=== PATIENT | male | born 1945 | race Caucasian/White ===

== ENCOUNTER 2017-08-18 12:35 | Emergency (ER) | payer MEDICARE, MEDICAID ==
[~2017-08-18] VITALS: Ht 175.3 cm; Wt 127.0 kg
[2017-08-18 12:44] VITALS: BP 131/50
[2017-08-18 13:49] LABS: Eosinophils # (auto) 0.3 uL; Monocytes # (auto) 0.6 uL
[2017-08-18 13:51] LABS: Basophils # (auto) 0.1 uL; Basophils % (auto) 0.7 % (0.0-2.0); Eosinophils % (auto) 4.1 % (0.0-7.0); Hematocrit 38.4 % (41.0-53.0); Hemoglobin 12.5 g/dL (13.5-17.5); Lymphocytes % (auto) 25.3 % (10.0-50.0); Mean Corpuscular Hemoglobin 26.7 pg (28.0-32.0); Mean Corpuscular Hgb Conc. 32.6 g/dL (32.0-36.0); Mean Corpuscular Volume 81.9 fL (80.0-100.0); Monocytes % (auto) 7.3 % (0.0-12.0); Neutrophils # (auto) 4.8 uL; Neutrophils % (auto) 62.6 % (37.0-80.0); Platelet Count (auto) 304 10^3/uL (140-450); Red Blood Cells 4.69 10^6/uL (4.5-5.90); Red Cell Distribution Width 14.2 % (11.8-14.3); White Blood Cell 7.7 10^3/uL (4.4-10.8)
[2017-08-18 14:02] LABS: Alanine Aminotransferase 18 U/L (16-61); Alkaline Phosphatase 104 U/L (45-117); Anion Gap 11 (5-15); Aspartate Aminotransferase 11 U/L (15-37); BUN/Creatinine Ratio 19.9; Bilirubin, Total 0.3 mg/dL (0.2-1.0); Blood Urea Nitrogen 30 mg/dL (7-18); Calcium 8.3 mg/dL (8.5-10.1); Carbon Dioxide 19 mmol/L (21-32); Chloride 101 mmol/L (98-107); GFR African American 59 mL/min; GFR Non-African American 49 mL/min; Glucose 377 mg/dL (74-106); Potassium 4.7 mmol/L (3.5-5.1); Sodium 131 mmol/L (136-145); Total Protein 8.1 g/dL (6.4-8.2)
[2017-09-06] MEDS ORDERED: LEVO250T45 PO (13:23)
== END 2017-08-18 18:44 | disposition left against medical advice (07) ==
LOC: ER 12:35
DX: R07.9 Chest pain, unspecified (principal); E11.65 Type 2 diabetes mellitus with hyperglycemia; E78.5 Hyperlipidemia, unspecified; I10 Essential (primary) hypertension; I25.2 Old myocardial infarction; M81.0 Age-related osteoporosis without current pathological fracture; Z95.1 Presence of aortocoronary bypass graft
CPT/HCPCS: 36415; 71046; 80053; 84484; 85025; 93005

== ENCOUNTER 2017-09-03 07:27 | Inpatient (IN) | payer MEDICARE, MEDICAID ==
[~2017-09-03] VITALS: Ht 172.7 cm; Wt 122.0 kg
[2017-09-03] MEDS ORDERED: SODIUM CHLORIDE 0.9% 1,000 ML IV ONE (08:33)
[2017-09-03 09:20] LABS: Basophils # (auto) 0 uL; Basophils % (auto) 0.4 % (0.0-2.0); Eosinophils # (auto) 0.3 uL; Eosinophils % (auto) 3.3 % (0.0-7.0); Hematocrit 37.8 % (41.0-53.0); Hemoglobin 12.4 g/dL (13.5-17.5); Lymphocytes # (auto) 1.9 uL; Lymphocytes % (auto) 24.6 % (10.0-50.0); Mean Corpuscular Hemoglobin 26.8 pg (28.0-32.0); Mean Corpuscular Hgb Conc. 32.9 g/dL (32.0-36.0); Mean Corpuscular Volume 81.7 fL (80.0-100.0); Monocytes # (auto) 0.7 uL; Monocytes % (auto) 9.4 % (0.0-12.0); Neutrophils # (auto) 4.8 uL; Neutrophils % (auto) 62.3 % (37.0-80.0); Platelet Count (auto) 310 10^3/uL (140-450); Red Blood Cells 4.63 10^6/uL (4.5-5.90); Red Cell Distribution Width 14.7 % (11.8-14.3); White Blood Cell 7.7 10^3/uL (4.4-10.8)
[2017-09-03 09:32] LABS: INR 0.97 (0.9-1.15); Partial Thromboplastin Time 25.6 sec (22.64-33.71); Prothrombin Time 10.6 sec (9.37-12.3)
[2017-09-03 09:42] LABS: Magnesium 2.1 mg/dL (1.6-2.6)
[2017-09-03 09:47] LABS: BUN/Creatinine Ratio 21.2; Bilirubin, Total 0.4 mg/dL (0.2-1.0); Calcium 8.4 mg/dL (8.5-10.1); Potassium 4.9 mmol/L (3.5-5.1)
[2017-09-03 10:35] LABS: Urine WBC None Seen /hpf (0 - 3)
[2017-09-03] MEDS ORDERED: InsuLIN REG 1unit/0.01ml Soln (100units/ml) IV ONE (10:45)
[2017-09-03 10:49] LABS: Urine Bacteria NONE SEEN /hpf (None Seen); Urine Blood Negative /uL (Negative); Urine Specific Gravity 1.019 (1.001-1.035)
[2017-09-03 10:58] LABS: Alcohol, Urine < 3.0 mg/dL (0-5); Amphetamine Screen, Urine NEGATIVE (NEGATIVE); Barbiturate Scree,Urine NEGATIVE (NEGATIVE); Benzodiazephine Screen, Urine NEGATIVE (NEGATIVE); Cannabinoid Screen, Urine NEGATIVE (NEGATIVE); Cocaine Screen, Urine NEGATIVE (NEGATIVE); Opiate Scree,Urine NEGATIVE (NEGATIVE); Phencyclidine Screen, Urine NEGATIVE (NEGATIVE)
[2017-09-03] MEDS: SODIUM CHLORIDE 0.9% 1,000 ML IV SCH ×2 (11:08→21:08)
[2017-09-03] MEDS ORDERED: PROMETHAZINE HCL 25 MG/ML 1ML IV PRN (11:15)
[2017-09-03] MEDS ORDERED: TEMAZEPAM 15 MG CAP PO PRN (11:15)
[2017-09-03] MEDS ORDERED: LACTULOSE 20Gm/30ML SOLN PO PRN (11:15)
[2017-09-03] MEDS ORDERED: DEXTROSE (50%) 50ML SYRG IV PRN (11:15)
[2017-09-03] MEDS ORDERED: LORazepam 0.5 MG TAB PO PRN (11:15)
[2017-09-03] MEDS ORDERED: MORPHINE SULF INJ 2 MG/ML SYRINGE 1ML IV PRN ×2 (11:15→11:45)
[2017-09-03] MEDS ORDERED: NITROGLYCERIN 0.4 MG SL TAB SL PRN (11:15)
[2017-09-03] MEDS ORDERED: ACETAMINOPHEN 500 MG TAB PO PRN (11:15)
[2017-09-03] MEDS: PANTOPRAZOLE 40 MG TAB PO SCH (12:00)
[2017-09-03] MEDS: ACCU-CHEK COMFORT CURVE STRIP VI SCH ×4 (12:00→23:36)
[2017-09-03 12:26] LABS: Amylase 9 U/L (25-115); Lipase 88 U/L (73-393)
[2017-09-03] MEDS: HYDROcodone-ACET 5/325MG TAB PO PRN (14:29)
[2017-09-03] MEDS: ENOXAPARIN SOD 40 MG/0.4 ML SYRINGE SC SCH (14:31)
[2017-09-03] MEDS: InsuLIN REG 1unit/0.01ml Soln (100units/ml) SC SCH ×4 (14:36→23:36)
[2017-09-03 17:03] VITALS: BP 137/93
[2017-09-03 20:00] VITALS: BP 127/69
[2017-09-03 21:59] VITALS: BP 127/69
[2017-09-04] VITALS (7 sets, daily range): BP systolic 103–136; BP diastolic 52–71
[2017-09-04] MEDS: InsuLIN REG 1unit/0.01ml Soln (100units/ml) SC SCH ×5 (04:23→20:00)
[2017-09-04] MEDS: ACCU-CHEK COMFORT CURVE STRIP VI SCH ×5 (04:23→20:00)
[2017-09-04 05:20] LABS: Basophils # (auto) 0 uL; Basophils % (auto) 0.6 % (0.0-2.0); Hemoglobin 12.2 g/dL (13.5-17.5); Monocytes # (auto) 0.7 uL; Neutrophils # (auto) 4.2 uL; Nucleated Red Blood Cells % 0.1 %
[2017-09-04 05:22] LABS: Eosinophils # (auto) 0.4 uL; Eosinophils % (auto) 5.4 % (0.0-7.0); Lymphocytes # (auto) 2.5 uL; Lymphocytes % (auto) 31.9 % (10.0-50.0); Mean Corpuscular Hemoglobin 26.9 pg (28.0-32.0); Mean Corpuscular Hgb Conc. 33.8 g/dL (32.0-36.0); Mean Corpuscular Volume 79.5 fL (80.0-100.0); Monocytes % (auto) 8.6 % (0.0-12.0); Neutrophils % (auto) 53.5 % (37.0-80.0); Platelet Count (auto) 294 10^3/uL (140-450); Red Blood Cells 4.53 10^6/uL (4.5-5.90); Red Cell Distribution Width 14.6 % (11.8-14.3); White Blood Cell 7.9 10^3/uL (4.4-10.8)
[2017-09-04 05:56] LABS: Albumin 2.8 g/dL (3.4-5.0); BUN/Creatinine Ratio 24.1; Bilirubin, Total 0.7 mg/dL (0.2-1.0); Calcium 8.4 mg/dL (8.5-10.1); Potassium 4.5 mmol/L (3.5-5.1); Total Protein 7.6 g/dL (6.4-8.2)
[2017-09-04] MEDS: SODIUM CHLORIDE 0.9% 1,000 ML IV SCH ×2 (07:08→17:08)
[2017-09-04] MEDS: HYDROcodone-ACET 5/325MG TAB PO PRN ×2 (09:53→18:18)
[2017-09-04] MEDS: ENOXAPARIN SOD 40 MG/0.4 ML SYRINGE SC SCH (09:53)
[2017-09-04] MEDS: PANTOPRAZOLE 40 MG TAB PO SCH (09:54)
[2017-09-04] MEDS ORDERED: PANT40TA2 PO (14:57)
[2017-09-04] MEDS ORDERED: TAM04C PO (14:57)
[2017-09-04] MEDS ORDERED: CLOP75TA28 PO (14:57)
[2017-09-04] MEDS ORDERED: TICA90TA PO (14:57)
[2017-09-04] MEDS ORDERED: METO25TA5 PO (14:57)
[2017-09-04] MEDS ORDERED: ATOR40TA52 PO (14:57)
[2017-09-04] MEDS ORDERED: INSUINJ37 SC (14:57)
[2017-09-04] MEDS ORDERED: DOCU-94 PO (14:57)
[2017-09-04] MEDS ORDERED: LEVOFLOXACIN 500MG 100 ML IV ONE (17:30)
[2017-09-04] MEDS ORDERED: ASPirin 81 mg TAB PO ONE (18:00)
[2017-09-04] MEDS ORDERED: TAMSULOSIN HYDROCHLORIDE 0.4 MG CAP PO ONE (18:00)
[2017-09-04] MEDS ORDERED: CLOPIDOGREL BISULFATE 75 MG TAB PO ONE (18:00)
[2017-09-04] MEDS: TAMSULOSIN HYDROCHLORIDE 0.4 MG CAP PO SCH (18:16)
[2017-09-04] MEDS: CLINDAMYCIN 300MG IV 50 ML IV SCH (21:10)
[2017-09-04] MEDS ORDERED: INSULIN LANTUS (GLARGINE) 1 /0.01ml (100units/ml) SC SCH (22:00)
[2017-09-04] MEDS: ATORVASTATIN 20 MG TAB PO SCH (22:00)
[2017-09-05] MEDS: InsuLIN REG 1unit/0.01ml Soln (100units/ml) SC SCH ×6 (04:00→20:00)
[2017-09-05] MEDS: ACCU-CHEK COMFORT CURVE STRIP VI SCH ×6 (04:00→20:00)
[2017-09-05] MEDS: CLINDAMYCIN 300MG IV 50 ML IV SCH ×3 (04:38→21:14)
[2017-09-05 05:00] VITALS: BP 130/73
[2017-09-05 08:52] VITALS: BP 147/65
[2017-09-05] MEDS: CLOPIDOGREL BISULFATE 75 MG TAB PO SCH (11:31)
[2017-09-05] MEDS: PANTOPRAZOLE 40 MG TAB PO SCH (11:32)
[2017-09-05] MEDS: ASPirin 81 mg TAB PO SCH (11:33)
[2017-09-05] MEDS: HYDROcodone-ACET 5/325MG TAB PO PRN (11:33)
[2017-09-05] MEDS: ENOXAPARIN SOD 40 MG/0.4 ML SYRINGE SC SCH (11:37)
[2017-09-05 13:12] VITALS: BP 137/63
[2017-09-05 17:07] VITALS: BP 118/67
[2017-09-05] MEDS ORDERED: LEVOFLOXACIN 500MG 100 ML IV SCH (18:00)
[2017-09-05] MEDS: TAMSULOSIN HYDROCHLORIDE 0.4 MG CAP PO SCH (18:50)
[2017-09-05 20:00] VITALS: BP 145/78
[2017-09-05 22:00] VITALS: BP 145/78
[2017-09-05] MEDS ORDERED: INSULIN LANTUS (GLARGINE) 1 /0.01ml (100units/ml) SC SCH (22:00)
[2017-09-05] MEDS: ATORVASTATIN 20 MG TAB PO SCH (22:11)
[2017-09-06] MEDS: ACCU-CHEK COMFORT CURVE STRIP VI SCH ×4 (00:27→11:28)
[2017-09-06] MEDS: InsuLIN REG 1unit/0.01ml Soln (100units/ml) SC SCH ×4 (00:28→11:28)
[2017-09-06] MEDS: CLINDAMYCIN 300MG IV 50 ML IV SCH ×2 (04:14→12:29)
[2017-09-06 05:00] VITALS: BP 117/59
[2017-09-06 05:54] LABS: Basophils # (auto) 0 uL; Basophils % (auto) 0.4 % (0.0-2.0); Eosinophils # (auto) 0.2 uL; Eosinophils % (auto) 2.7 % (0.0-7.0); Hematocrit 36.8 % (41.0-53.0); Hemoglobin 12.4 g/dL (13.5-17.5); Lymphocytes % (auto) 22.8 % (10.0-50.0); Mean Corpuscular Hgb Conc. 33.6 g/dL (32.0-36.0); Mean Corpuscular Volume 80.4 fL (80.0-100.0); Monocytes % (auto) 11.2 % (0.0-12.0); Neutrophils # (auto) 5.4 uL; Neutrophils % (auto) 62.9 % (37.0-80.0); Platelet Count (auto) 273 10^3/uL (140-450); Red Blood Cells 4.58 10^6/uL (4.5-5.90); Red Cell Distribution Width 14.8 % (11.8-14.3); White Blood Cell 8.6 10^3/uL (4.4-10.8)
[2017-09-06 06:32] LABS: BUN/Creatinine Ratio 18.7; CRP High Sensitivity 1.5 mg/dL (< 0.3); Calcium 8.9 mg/dL (8.5-10.1); Potassium 4.7 mmol/L (3.5-5.1)
[2017-09-06 09:00] VITALS: BP 105/70
[2017-09-06] MEDS: ASPirin 81 mg TAB PO SCH (10:39)
[2017-09-06] MEDS: PANTOPRAZOLE 40 MG TAB PO SCH (10:39)
[2017-09-06] MEDS: ENOXAPARIN SOD 40 MG/0.4 ML SYRINGE SC SCH (10:39)
[2017-09-06] MEDS: CLOPIDOGREL BISULFATE 75 MG TAB PO SCH (10:39)
[2017-09-06] MEDS: HYDROcodone-ACET 5/325MG TAB PO PRN ×2 (12:26→17:45)
[2017-09-06 13:00] VITALS: BP 139/66
[2017-09-06] MEDS ORDERED: DEXTROSE (50%) 50ML SYRG IV PRN (13:00)
[2017-09-06] MEDS ORDERED: LEVOFLOXACIN 250 MG TAB PO ONE (13:00)
[2017-09-06] MEDS ORDERED: LEVO250T45 PO (13:23)
[2017-09-06 17:00] VITALS: BP 115/58
[2017-09-06] MEDS ORDERED: ACCU-CHEK COMFORT CURVE STRIP VI SCH (17:00)
[2017-09-06] MEDS ORDERED: InsuLIN REG 1unit/0.01ml Soln (100units/ml) SC SCH (17:00)
[2017-09-06] MEDS: TAMSULOSIN HYDROCHLORIDE 0.4 MG CAP PO SCH (17:44)
[2017-09-06] MEDS ORDERED: METOPROLOL TARTRATE 25 MG TAB PO SCH (22:00)
[2017-09-06] MEDS ORDERED: INSULIN LANTUS (GLARGINE) 1 /0.01ml (100units/ml) SC SCH (22:00)
[2017-09-07] MEDS ORDERED: LEVOFLOXACIN 250 MG TAB PO SCH (10:00)
== END 2017-09-06 20:00 | DRG 917 ==
LOC: ER 07:27 → TELE 07:28 → TELE-WESTW 12:01 → WEST WING 09-05 23:52
PROVIDERS: ADMIT Internal Medicine; ATTEND Internal Medicine
PROC: 0W9B3ZZ Drainage of Left Pleural Cavity, Percutaneous Approach (ICD-10-PCS; principal; 2017-09-05)
DX: T40.691A Poisoning by other narcotics, accidental (unintentional), initial encounter (principal); J18.9 Pneumonia, unspecified organism; N17.0 Acute kidney failure with tubular necrosis; E44.0 Moderate protein-calorie malnutrition; J90 Pleural effusion, not elsewhere classified; E11.21 Type 2 diabetes mellitus with diabetic nephropathy; E11.42 Type 2 diabetes mellitus with diabetic polyneuropathy; Z68.41 Body mass index [BMI] 40.0-44.9, adult; S39.81XA Other specified injuries of abdomen, initial encounter; T38.3X1A Poisoning by insulin and oral hypoglycemic [antidiabetic] drugs, accidental (unintentional), initial encounter; E66.01 Morbid (severe) obesity due to excess calories; E11.65 Type 2 diabetes mellitus with hyperglycemia; E11.22 Type 2 diabetes mellitus with diabetic chronic kidney disease; I25.10 Atherosclerotic heart disease of native coronary artery without angina pectoris; E78.5 Hyperlipidemia, unspecified; I12.9 Hypertensive chronic kidney disease with stage 1 through stage 4 chronic kidney disease, or unspecified chronic kidney disease; M81.0 Age-related osteoporosis without current pathological fracture; N18.9 Chronic kidney disease, unspecified; N40.0 Benign prostatic hyperplasia without lower urinary tract symptoms; K59.00 Constipation, unspecified; F41.9 Anxiety disorder, unspecified; W50.0XXA Accidental hit or strike by another person, initial encounter; G47.00 Insomnia, unspecified; I25.2 Old myocardial infarction; Z95.5 Presence of coronary angioplasty implant and graft; Y93.89 Activity, other specified; Y92.89 Other specified places as the place of occurrence of the external cause; Y99.8 Other external cause status
CPT/HCPCS: 10030; 32555; 36415; 71045; 71046; 74176; 76604; 76942; 80048; 80053; 80061; 80307; 81001; 82150; 82962; 83036; 83690; 83735; 83880; 83986; 84443; 84484; 85025; 85610; 85652; 85730; 86141; 87205; 89051; 93005; 94761; J1815; J1956; J3490

== ENCOUNTER 2017-09-10 16:07 | Inpatient (IN) | payer MEDICARE, MEDICAID ==
[~2017-09-10] VITALS: Ht 180.3 cm; Wt 118.7 kg
[~2017-09-10 16:07] MED LIST: ATOR40TA52 PO; CLOP75TA28 PO; DOCU-94 PO; INSUINJ37 SC; LEVO250T45 PO; METO25TA5 PO; PANT40TA2 PO; TAM04C PO
[2017-09-10] MEDS ORDERED: ASPirin 81 mg TAB PO ONE (16:45)
[2017-09-10] MEDS ORDERED: NITROGLYCERIN 0.4 MG SL TAB SL ONE (16:45)
[2017-09-10 17:21] LABS: Basophils # (auto) 0 uL; Basophils % (auto) 0.4 % (0.0-2.0); Eosinophils # (auto) 0.3 uL; Eosinophils % (auto) 3.1 % (0.0-7.0); Hematocrit 36.6 % (41.0-53.0); Lymphocytes # (auto) 2.4 uL; Lymphocytes % (auto) 25.8 % (10.0-50.0); Mean Corpuscular Hemoglobin 26.5 pg (28.0-32.0); Mean Corpuscular Hgb Conc. 32.7 g/dL (32.0-36.0); Mean Corpuscular Volume 81.1 fL (80.0-100.0); Monocytes # (auto) 0.8 uL; Monocytes % (auto) 9.1 % (0.0-12.0); Neutrophils # (auto) 5.6 uL; Neutrophils % (auto) 61.6 % (37.0-80.0); Platelet Count (auto) 291 10^3/uL (140-450); Red Blood Cells 4.51 10^6/uL (4.5-5.90); White Blood Cell 9.1 10^3/uL (4.4-10.8)
[2017-09-10 17:44] LABS: Alanine Aminotransferase 13 U/L (16-61); Alkaline Phosphatase 80 U/L (45-117); Anion Gap 13 (5-15); Aspartate Aminotransferase 11 U/L (15-37); BUN/Creatinine Ratio 19.2; Bilirubin, Total 0.4 mg/dL (0.2-1.0); Blood Urea Nitrogen 39 mg/dL (7-18); Calcium 8.4 mg/dL (8.5-10.1); Carbon Dioxide 21 mmol/L (21-32); Chloride 102 mmol/L (98-107); GFR African American 42 mL/min; GFR Non-African American 34 mL/min; Glucose 216 mg/dL (74-106); Potassium 4.8 mmol/L (3.5-5.1); Sodium 136 mmol/L (136-145); Total Protein 8.2 g/dL (6.4-8.2)
[2017-09-10] MEDS ORDERED: cefTRIAXone 1GM/10ml IVPUSH 10 ML IV ONE (18:15)
[2017-09-10] MEDS ORDERED: AZITHROMYCIN 500MG/ 250ML 250 ML IV ONE (18:15)
[2017-09-10] MEDS ORDERED: NITROGLYCERIN 0.4 MG SL TAB SL PRN ×2 (19:15)
[2017-09-10] MEDS ORDERED: ALUM & MAG HYDROX-SIMETH LIQ(MAALOX) 30 ML PO ONE (19:15)
[2017-09-10] MEDS ORDERED: ZOLPIDEM TARTRATE 5 MG TAB PO PRN (19:15)
[2017-09-10] MEDS ORDERED: ACETAMINOPHEN 325 MG TAB PO PRN (19:15)
[2017-09-10] MEDS ORDERED: LORazepam 0.5 MG TAB PO PRN (19:15)
[2017-09-10] MEDS ORDERED: ONDANSETRON HCL 4 MG/2 ML VIAL IV PRN (19:15)
[2017-09-10] MEDS ORDERED: LACTULOSE 20Gm/30ML SOLN PO PRN (19:30)
[2017-09-10] MEDS ORDERED: KETOROLAC TROMETH 30 MG/ML 1ML VIAL IV PRN (19:30)
[2017-09-10] MEDS ORDERED: DEXTROSE (50%) 50ML SYRG IV PRN (19:30)
[2017-09-10] MEDS: ACCU-CHEK COMFORT CURVE STRIP VI SCH (22:00)
[2017-09-10 22:25] VITALS: BP 139/73
[2017-09-10 22:30] VITALS: BP_SYST 135; BP_SYST 139; BP_DIAS 73; BP_DIAS 76
[2017-09-10] MEDS: METOPROLOL TARTRATE 25 MG TAB PO SCH (23:31)
[2017-09-10] MEDS: ENALAPRIL MALEATE 2.5 MG TAB PO SCH (23:31)
[2017-09-10] MEDS: ATORVASTATIN 20 MG TAB PO SCH (23:32)
[2017-09-10] MEDS: InsuLIN REG 1unit/0.01ml Soln (100units/ml) SC SCH (23:46)
[2017-09-10] MEDS: INSULIN LANTUS (GLARGINE) 1 /0.01ml (100units/ml) SC SCH (23:47)
[2017-09-11 06:00] VITALS: BP 104/52
[2017-09-11] MEDS: SODIUM CHLOR 0.9% PF (SALINE LOCK) 10ML VIAL IV SCH ×4 (06:00→23:37)
[2017-09-11] MEDS: InsuLIN REG 1unit/0.01ml Soln (100units/ml) SC SCH ×4 (07:00→22:00)
[2017-09-11] MEDS: ACCU-CHEK COMFORT CURVE STRIP VI SCH ×4 (07:00→23:37)
[2017-09-11 07:30] VITALS: BP 102/54
[2017-09-11 08:03] VITALS: BP 102/54
[2017-09-11 08:21] LABS: Basophils # (auto) 0 uL; Hematocrit 35.4 % (41.0-53.0); Hemoglobin 11.7 g/dL (13.5-17.5); Lymphocytes # (auto) 2.4 uL; Neutrophils # (auto) 4.2 uL
[2017-09-11 08:25] LABS: Basophils % (auto) 0.4 % (0.0-2.0); Eosinophils # (auto) 0.3 uL; Eosinophils % (auto) 4.5 % (0.0-7.0); Lymphocytes % (auto) 30.5 % (10.0-50.0); Mean Corpuscular Hemoglobin 26.6 pg (28.0-32.0); Mean Corpuscular Volume 80.6 fL (80.0-100.0); Monocytes # (auto) 0.9 uL; Monocytes % (auto) 11.1 % (0.0-12.0); Neutrophils % (auto) 53.5 % (37.0-80.0); Nucleated Red Blood Cells % 0.1 %; Platelet Count (auto) 263 10^3/uL (140-450); Red Blood Cells 4.39 10^6/uL (4.5-5.90); White Blood Cell 7.8 10^3/uL (4.4-10.8)
[2017-09-11 08:49] LABS: Alanine Aminotransferase 9 U/L (16-61); Albumin 2.8 g/dL (3.4-5.0); Alkaline Phosphatase 73 U/L (45-117); Anion Gap 12 (5-15); Aspartate Aminotransferase 10 U/L (15-37); BUN/Creatinine Ratio 19.7; Bilirubin, Total 0.4 mg/dL (0.2-1.0); Blood Urea Nitrogen 47 mg/dL (7-18); Calcium 8.5 mg/dL (8.5-10.1); Carbon Dioxide 20 mmol/L (21-32); Chloride 105 mmol/L (98-107); Cholesterol 130 mg/dL (< 200); GFR African American 34 mL/min; GFR Non-African American 28 mL/min; Glucose 164 mg/dL (74-106); HDL Cholesterol 24 mg/dL (40-59); LDL Cholesterol 88 mg/dL (< 100); Magnesium 2.3 mg/dL (1.6-2.6); Potassium 4.3 mmol/L (3.5-5.1); Sodium 137 mmol/L (136-145); Total Protein 7.6 g/dL (6.4-8.2); Triglycerides 179 mg/dL (< 150)
[2017-09-11] MEDS: ENALAPRIL MALEATE 2.5 MG TAB PO SCH ×2 (10:00→22:00)
[2017-09-11] MEDS: METOPROLOL TARTRATE 25 MG TAB PO SCH ×2 (10:00→22:00)
[2017-09-11 11:19] LABS: Phosphorus 4.2 mg/dL (2.5-4.90); Uric Acid 10.4 mg/dL (3.5-7.2)
[2017-09-11 12:59] VITALS: BP 100/47
[2017-09-11] MEDS: CLOPIDOGREL BISULFATE 75 MG TAB PO SCH (13:05)
[2017-09-11] MEDS: PANTOPRAZOLE 40 MG TAB PO SCH (13:05)
[2017-09-11] MEDS: DOCUSATE SOD 100 MG CAP PO SCH (13:07)
[2017-09-11] MEDS: Boost Glucose Control 8 Ounces PO SCH ×3 (13:08→17:25)
[2017-09-11] MEDS: ASPirin 81 mg TAB PO SCH (13:08)
[2017-09-11] MEDS: HYDROcodone-ACET 5/325MG TAB PO PRN ×2 (13:31→22:14)
[2017-09-11] MEDS: SODIUM BICARBONATE 50ML VIAL 50 ML in SOD CHL 0.45% 1,000 ML IV SCH ×2 (14:32→18:31)
[2017-09-11 14:51] LABS: Protein, Urine 17.9 mg/dL (0.0-11.9)
[2017-09-11 16:38] VITALS: BP 153/99
[2017-09-11] MEDS: TAMSULOSIN HYDROCHLORIDE 0.4 MG CAP PO SCH (17:25)
[2017-09-11 22:00] VITALS: BP 118/48
[2017-09-11] MEDS: ATORVASTATIN 20 MG TAB PO SCH (22:14)
[2017-09-11] MEDS: INSULIN LANTUS (GLARGINE) 1 /0.01ml (100units/ml) SC SCH (23:38)
[2017-09-12 05:00] VITALS: BP 114/61
[2017-09-12 05:41] LABS: Basophils # (auto) 0 uL; Basophils % (auto) 0.4 % (0.0-2.0); Eosinophils # (auto) 0.4 uL; Lymphocytes # (auto) 2.5 uL; Lymphocytes % (auto) 33.9 % (10.0-50.0); Mean Corpuscular Hemoglobin 27.4 pg (28.0-32.0); Mean Corpuscular Hgb Conc. 34.2 g/dL (32.0-36.0); Mean Corpuscular Volume 80.2 fL (80.0-100.0); Monocytes # (auto) 0.7 uL; Monocytes % (auto) 9.1 % (0.0-12.0); Neutrophils # (auto) 3.8 uL; Neutrophils % (auto) 51.6 % (37.0-80.0); Platelet Count (auto) 230 10^3/uL (140-450); Red Cell Distribution Width 14.7 % (11.8-14.3); White Blood Cell 7.4 10^3/uL (4.4-10.8)
[2017-09-12 05:48] LABS: INR 1.04 (0.9-1.15); Partial Thromboplastin Time 28.2 sec (22.64-33.71); Prothrombin Time 11.3 sec (9.37-12.3)
[2017-09-12 05:59] LABS: BUN/Creatinine Ratio 21.6; Calcium 8.3 mg/dL (8.5-10.1); Magnesium 2.3 mg/dL (1.6-2.6); Potassium 3.9 mmol/L (3.5-5.1)
[2017-09-12] MEDS: InsuLIN REG 1unit/0.01ml Soln (100units/ml) SC SCH ×4 (07:00→22:00)
[2017-09-12] MEDS: SODIUM CHLOR 0.9% PF (SALINE LOCK) 10ML VIAL IV SCH ×3 (07:02→22:29)
[2017-09-12] MEDS: ACCU-CHEK COMFORT CURVE STRIP VI SCH ×4 (07:02→22:29)
[2017-09-12] MEDS: SODIUM BICARBONATE 50ML VIAL 50 ML in SOD CHL 0.45% 1,000 ML IV SCH ×3 (07:02→22:55)
[2017-09-12 07:30] VITALS: BP 116/63
[2017-09-12] MEDS: Boost Glucose Control 8 Ounces PO SCH ×3 (08:00→19:37)
[2017-09-12 08:29] VITALS: BP 116/63
[2017-09-12] MEDS: ENALAPRIL MALEATE 2.5 MG TAB PO SCH ×2 (10:00→22:28)
[2017-09-12] MEDS: ASPirin 81 mg TAB PO SCH ×2 (10:00→15:47)
[2017-09-12] MEDS: DOCUSATE SOD 100 MG CAP PO SCH (10:00)
[2017-09-12] MEDS: METOPROLOL TARTRATE 25 MG TAB PO SCH ×2 (10:00→22:29)
[2017-09-12] MEDS: CLOPIDOGREL BISULFATE 75 MG TAB PO SCH (10:01)
[2017-09-12] MEDS: HYDROcodone-ACET 5/325MG TAB PO PRN (10:02)
[2017-09-12 11:57] VITALS: BP 104/54
[2017-09-12] MEDS ORDERED: LIDOCAINE 2%HCL (LOCAL ANESTH.) INJ 20ML MDV ONE ×2 (14:25→15:09)
[2017-09-12] MEDS ORDERED: IOHEXOL 350 MG/ML 100ML IJ ONE ×2 (14:25→15:08)
[2017-09-12] MEDS ORDERED: ANGIOMAX 250 MG VIAL IV ONE (15:43)
[2017-09-12] MEDS ORDERED: fentaNYL CITRATE 100 MCG/2 ML VL ONE (15:44)
[2017-09-12] MEDS ORDERED: MIDAZOLAM HCL 1MG/1ML-2 ML VIAL ONE (15:44)
[2017-09-12] MEDS ORDERED: SODIUM CHL 0.9% 0 ML ONE (15:44)
[2017-09-12] MEDS: PANTOPRAZOLE 40 MG TAB PO SCH (15:46)
[2017-09-12] MEDS ORDERED: IODIXANOL 320MG/ML 100ML BTL IV ONE (16:42)
[2017-09-12] MEDS: TAMSULOSIN HYDROCHLORIDE 0.4 MG CAP PO SCH (19:37)
[2017-09-12 22:00] VITALS: BP 126/66
[2017-09-12] MEDS: ATORVASTATIN 20 MG TAB PO SCH (22:27)
[2017-09-12] MEDS: INSULIN LANTUS (GLARGINE) 1 /0.01ml (100units/ml) SC SCH (22:29)
[2017-09-12] MEDS ORDERED: SODIUM BICARBONATE 8.4 % INJ 50ML VIAL IV ONE (22:48)
[2017-09-13] MEDS: SODIUM BICARBONATE 50ML VIAL 50 ML in SOD CHL 0.45% 1,000 ML IV SCH ×2 (04:45→13:38)
[2017-09-13 04:55] VITALS: BP 102/54
[2017-09-13 05:00] VITALS: BP 84/41
[2017-09-13] MEDS: SODIUM CHLOR 0.9% PF (SALINE LOCK) 10ML VIAL IV SCH ×2 (06:00→14:29)
[2017-09-13] MEDS: ACCU-CHEK COMFORT CURVE STRIP VI SCH ×3 (06:56→17:00)
[2017-09-13 07:07] LABS: Basophils # (auto) 0 uL; Eosinophils # (auto) 0.3 uL; Mean Corpuscular Hemoglobin 26.9 pg (28.0-32.0); White Blood Cell 6.6 10^3/uL (4.4-10.8)
[2017-09-13 07:10] LABS: Basophils % (auto) 0.5 % (0.0-2.0); Eosinophils % (auto) 5.1 % (0.0-7.0); Lymphocytes # (auto) 1.8 uL; Lymphocytes % (auto) 26.8 % (10.0-50.0); Mean Corpuscular Hgb Conc. 33.4 g/dL (32.0-36.0); Mean Corpuscular Volume 80.8 fL (80.0-100.0); Monocytes # (auto) 0.7 uL; Neutrophils # (auto) 3.8 uL; Neutrophils % (auto) 57.6 % (37.0-80.0); Platelet Count (auto) 246 10^3/uL (140-450); Red Blood Cells 4.08 10^6/uL (4.5-5.90); Red Cell Distribution Width 14.5 % (11.8-14.3)
[2017-09-13] MEDS: InsuLIN REG 1unit/0.01ml Soln (100units/ml) SC SCH ×3 (07:10→17:00)
[2017-09-13 07:41] LABS: BUN/Creatinine Ratio 23.1; Calcium 8.3 mg/dL (8.5-10.1); Magnesium 2.3 mg/dL (1.6-2.6); Potassium 3.8 mmol/L (3.5-5.1)
[2017-09-13] MEDS: Boost Glucose Control 8 Ounces PO SCH ×3 (08:06→17:57)
[2017-09-13 09:00] VITALS: BP 90/44
[2017-09-13] MEDS: ENALAPRIL MALEATE 2.5 MG TAB PO SCH (10:00)
[2017-09-13] MEDS: METOPROLOL TARTRATE 25 MG TAB PO SCH (10:00)
[2017-09-13] MEDS: DOCUSATE SOD 100 MG CAP PO SCH (10:13)
[2017-09-13] MEDS: PANTOPRAZOLE 40 MG TAB PO SCH (10:14)
[2017-09-13] MEDS: ASPirin 81 mg TAB PO SCH (10:14)
[2017-09-13] MEDS: CLOPIDOGREL BISULFATE 75 MG TAB PO SCH (10:14)
[2017-09-13] MEDS ORDERED: ASPI81CH43 PO (13:33)
[2017-09-13] MEDS ORDERED: GABA300C PO (13:37)
[2017-09-13 17:24] VITALS: BP 145/68
[2017-09-13] MEDS: TAMSULOSIN HYDROCHLORIDE 0.4 MG CAP PO SCH (17:58)
[2017-09-14] MEDS ORDERED: CLOPIDOGREL BISULFATE 75 MG TAB PO SCH (10:00)
== END 2017-09-13 19:43 | DRG 286 ==
LOC: EDBD 16:07 → ER 16:08 → TELE 16:09 → TELE-WESTW 22:20
PROVIDERS: ADMIT Internal Medicine; ATTEND Internal Medicine
PROC: 4A023N7 Measurement of Cardiac Sampling and Pressure, Left Heart, Percutaneous Approach (ICD-10-PCS; principal; 2017-09-13)
PROC: B2131ZZ Fluoroscopy of Multiple Coronary Artery Bypass Grafts using Low Osmolar Contrast (ICD-10-PCS; 2017-09-13)
PROC: B2111ZZ Fluoroscopy of Multiple Coronary Arteries using Low Osmolar Contrast (ICD-10-PCS; 2017-09-13)
PROC: B2181ZZ Fluoroscopy of Left Internal Mammary Bypass Graft using Low Osmolar Contrast (ICD-10-PCS; 2017-09-13)
DX: I25.119 Atherosclerotic heart disease of native coronary artery with unspecified angina pectoris (principal); N17.0 Acute kidney failure with tubular necrosis; J18.9 Pneumonia, unspecified organism; E44.0 Moderate protein-calorie malnutrition; J90 Pleural effusion, not elsewhere classified; E10.21 Type 1 diabetes mellitus with diabetic nephropathy; E10.42 Type 1 diabetes mellitus with diabetic polyneuropathy; J98.11 Atelectasis; E83.51 Hypocalcemia; N18.3 Chronic kidney disease, stage 3 (moderate); N40.1 Benign prostatic hyperplasia with lower urinary tract symptoms; E66.01 Morbid (severe) obesity due to excess calories; R33.8 Other retention of urine; D63.8 Anemia in other chronic diseases classified elsewhere; E10.22 Type 1 diabetes mellitus with diabetic chronic kidney disease; E78.5 Hyperlipidemia, unspecified; I12.9 Hypertensive chronic kidney disease with stage 1 through stage 4 chronic kidney disease, or unspecified chronic kidney disease; Z79.4 Long term (current) use of insulin; Z83.3 Family history of diabetes mellitus; Z87.891 Personal history of nicotine dependence; Z95.1 Presence of aortocoronary bypass graft; Z95.5 Presence of coronary angioplasty implant and graft; Z79.82 Long term (current) use of aspirin; Z68.36 Body mass index [BMI] 36.0-36.9, adult
CPT/HCPCS: 36415; 71045; 76775; 80048; 80053; 80061; 82306; 82570; 82962; 83036; 83605; 83735; 83970; 84100; 84156; 84300; 84443; 84484; 84550; 85025; 85610; 85730; 87040; 87081; 87086; 93005; 93459; 96372; 96374; 96375; 99152; J1815; J1885; J2250; Q9967

== ENCOUNTER 2017-12-24 12:19 | Inpatient (IN) | payer MEDICARE, MEDICAID ==
[~2017-12-24] VITALS: Ht 172.7 cm; Wt 119.3 kg
[~2017-12-24 12:19] MED LIST changes: +ASPI81CH43 PO; +GABA300C PO; -LEVO250T45 PO
[2017-12-24 14:08] LABS: Alanine Aminotransferase 14 U/L (16-61); Albumin 2.8 g/dL (3.4-5.0); Alkaline Phosphatase 106 U/L (45-117); Anion Gap 9 (5-15); Aspartate Aminotransferase 8 U/L (15-37); BUN/Creatinine Ratio 14.4; Bilirubin, Total 0.4 mg/dL (0.2-1.0); Blood Urea Nitrogen 30 mg/dL (7-18); Calcium 8.1 mg/dL (8.5-10.1); Carbon Dioxide 23 mmol/L (21-32); Chloride 102 mmol/L (98-107); GFR African American 40 mL/min; GFR Non-African American 33 mL/min; Glucose 313 mg/dL (74-106); Magnesium 2.1 mg/dL (1.6-2.6); Potassium 5.4 mmol/L (3.5-5.1); Sodium 134 mmol/L (136-145); Total Protein 7.3 g/dL (6.4-8.2)
[2017-12-24 14:10] LABS: Basophils # (auto) 0 uL; Basophils % (auto) 0.3 % (0.0-2.0); Eosinophils # (auto) 0.2 uL; Eosinophils % (auto) 3.5 % (0.0-7.0); Hematocrit 34.8 % (41.0-53.0); Hemoglobin 11.4 g/dL (13.5-17.5); Lymphocytes % (auto) 29.7 % (10.0-50.0); Mean Corpuscular Hemoglobin 27.1 pg (28.0-32.0); Mean Corpuscular Hgb Conc. 32.7 g/dL (32.0-36.0); Monocytes # (auto) 0.6 uL; Monocytes % (auto) 9.2 % (0.0-12.0); Neutrophils # (auto) 3.9 uL; Neutrophils % (auto) 57.3 % (37.0-80.0); Platelet Count (auto) 249 10^3/uL (140-450); Red Blood Cells 4.19 10^6/uL (4.5-5.90); Red Cell Distribution Width 15.3 % (11.8-14.3); White Blood Cell 6.7 10^3/uL (4.4-10.8)
[2017-12-25] MEDS ORDERED: SODIUM POLYSTYRENE SULF 15GM/60ML SUSP PO ONE (01:00)
[2017-12-25] MEDS ORDERED: MORPHINE SULFATE 4 MG/ML SYR/VIAL IV PRN (03:30)
[2017-12-25] MEDS ORDERED: NITROGLYCERIN 0.4 MG SL TAB SL PRN (03:30)
[2017-12-25] MEDS ORDERED: DEXTROSE (50%) 50ML SYRG IV PRN (03:30)
[2017-12-25] MEDS ORDERED: FUROSEMIDE 40 MG/4 ML VIAL IV ONE (07:30)
[2017-12-25] MEDS: InsuLIN REG 1unit/0.01ml Soln (100units/ml) SC SCH ×4 (07:45→21:50)
[2017-12-25] MEDS: ACCU-CHEK COMFORT CURVE STRIP VI SCH ×4 (07:46→21:51)
[2017-12-25] MEDS: ASPirin-EC 81 mg tab PO SCH (09:58)
[2017-12-25] MEDS: METOPROLOL SUCCINATE XL 50 MG TAB PO SCH (09:59)
[2017-12-25] MEDS: GABAPENTIN 300 MG CAP PO SCH (09:59)
[2017-12-25 12:09] VITALS: BP 128/54
[2017-12-25] MEDS ORDERED: CALCIUM GLUC 4.65meq/50ml D5AE 50 ML IV ONE (14:45)
[2017-12-25] MEDS ORDERED: SODIUM BICARBONATE 8.4 % INJ 50ML VIAL IV ONE (14:45)
[2017-12-25] MEDS ORDERED: ENOXAPARIN SOD 40 MG/0.4 ML SYRINGE SC SCH (14:57)
[2017-12-25] MEDS: PANTOPRAZOLE 40 MG/10 ML VIAL IV SCH (15:32)
[2017-12-25 16:34] VITALS: BP 143/76
[2017-12-25] MEDS: TAMSULOSIN HYDROCHLORIDE 0.4 MG CAP PO SCH (18:10)
[2017-12-25 20:00] VITALS: BP 139/65
[2017-12-25] MEDS: ATORVASTATIN 20 MG TAB PO SCH (21:50)
[2017-12-25 22:00] VITALS: BP 139/65
[2017-12-25] MEDS ORDERED: ATORVASTATIN 20 MG TAB PO SCH (22:00)
[2017-12-26 05:00] VITALS: BP 112/61
[2017-12-26] MEDS: InsuLIN REG 1unit/0.01ml Soln (100units/ml) SC SCH ×4 (06:55→21:55)
[2017-12-26] MEDS: ACCU-CHEK COMFORT CURVE STRIP VI SCH ×4 (06:55→21:44)
[2017-12-26] MEDS: ASPirin-EC 81 mg tab PO SCH (08:13)
[2017-12-26] MEDS: METOPROLOL SUCCINATE XL 50 MG TAB PO SCH (08:17)
[2017-12-26] MEDS: GABAPENTIN 300 MG CAP PO SCH (08:18)
[2017-12-26] MEDS: PANTOPRAZOLE 40 MG/10 ML VIAL IV SCH (08:19)
[2017-12-26] MEDS: ENOXAPARIN SOD 40 MG/0.4 ML SYRINGE SC SCH ×2 (08:23→21:18)
[2017-12-26 09:00] VITALS: BP 124/67
[2017-12-26 13:22] VITALS: BP 130/60
[2017-12-26 17:00] VITALS: BP 99/45
[2017-12-26] MEDS: TAMSULOSIN HYDROCHLORIDE 0.4 MG CAP PO SCH (18:27)
[2017-12-26] MEDS: ATORVASTATIN 20 MG TAB PO SCH (21:19)
[2017-12-26 22:00] VITALS: BP 154/70
[2017-12-26 22:01] LABS: Basophils # (auto) 0 uL; Basophils % (auto) 0.4 % (0.0-2.0); Eosinophils # (auto) 0.3 uL; Hematocrit 32.9 % (41.0-53.0); Lymphocytes # (auto) 1.9 uL; Lymphocytes % (auto) 29.6 % (10.0-50.0); Mean Corpuscular Hemoglobin 27.6 pg (28.0-32.0); Mean Corpuscular Hgb Conc. 33.5 g/dL (32.0-36.0); Mean Corpuscular Volume 82.4 fL (80.0-100.0); Monocytes # (auto) 0.7 uL; Monocytes % (auto) 11.1 % (0.0-12.0); Neutrophils # (auto) 3.5 uL; Neutrophils % (auto) 54.9 % (37.0-80.0); Nucleated Red Blood Cells % 0.1 %; Platelet Count (auto) 238 10^3/uL (140-450); Red Cell Distribution Width 15.4 % (11.8-14.3); White Blood Cell 6.4 10^3/uL (4.4-10.8)
[2017-12-26 22:25] LABS: Albumin 2.6 g/dL (3.4-5.0); BUN/Creatinine Ratio 20.5; Bilirubin, Total 0.3 mg/dL (0.2-1.0); Calcium 8.2 mg/dL (8.5-10.1); Potassium 4.7 mmol/L (3.5-5.1); Total Protein 6.8 g/dL (6.4-8.2)
[2017-12-27 05:00] VITALS: BP 140/61
[2017-12-27] MEDS: ACCU-CHEK COMFORT CURVE STRIP VI SCH ×2 (06:23→11:39)
[2017-12-27] MEDS: InsuLIN REG 1unit/0.01ml Soln (100units/ml) SC SCH ×2 (06:24→12:06)
[2017-12-27 09:00] VITALS: BP 125/51
[2017-12-27] MEDS ORDERED: KETOROLAC TROMETH 30 MG/ML 1ML VIAL IV ONE (09:30)
[2017-12-27] MEDS: PANTOPRAZOLE 40 MG/10 ML VIAL IV SCH (09:40)
[2017-12-27] MEDS: GABAPENTIN 300 MG CAP PO SCH (09:40)
[2017-12-27] MEDS: ASPirin-EC 81 mg tab PO SCH (09:40)
[2017-12-27] MEDS: ENOXAPARIN SOD 40 MG/0.4 ML SYRINGE SC SCH (09:40)
[2017-12-27] MEDS: METOPROLOL SUCCINATE XL 50 MG TAB PO SCH (09:41)
[2017-12-27 13:00] VITALS: BP 140/54
== END 2017-12-27 15:05 | DRG 291 ==
LOC: ER 12:19 → EDBD 12:19 → TELE 12:20 → TELE-WESTW 12-25 06:30
PROVIDERS: ADMIT Nurse Practitioner Family; ATTEND Family Medicine
DX: I13.0 Hypertensive heart and chronic kidney disease with heart failure and stage 1 through stage 4 chronic kidney disease, or unspecified chronic kidney disease (principal); I50.43 Acute on chronic combined systolic (congestive) and diastolic (congestive) heart failure; E44.0 Moderate protein-calorie malnutrition; E11.21 Type 2 diabetes mellitus with diabetic nephropathy; E11.40 Type 2 diabetes mellitus with diabetic neuropathy, unspecified; E87.1 Hypo-osmolality and hyponatremia; Z68.41 Body mass index [BMI] 40.0-44.9, adult; E87.5 Hyperkalemia; J44.9 Chronic obstructive pulmonary disease, unspecified; E78.5 Hyperlipidemia, unspecified; N40.0 Benign prostatic hyperplasia without lower urinary tract symptoms; E66.01 Morbid (severe) obesity due to excess calories; R00.1 Bradycardia, unspecified; I25.10 Atherosclerotic heart disease of native coronary artery without angina pectoris; N18.3 Chronic kidney disease, stage 3 (moderate); E11.22 Type 2 diabetes mellitus with diabetic chronic kidney disease; E11.65 Type 2 diabetes mellitus with hyperglycemia; E78.00 Pure hypercholesterolemia, unspecified; I25.2 Old myocardial infarction; Z95.1 Presence of aortocoronary bypass graft; Z79.4 Long term (current) use of insulin; Z79.899 Other long term (current) drug therapy
CPT/HCPCS: 36415; 71045; 80053; 82962; 83036; 83735; 83880; 84484; 85025; 93005; 93306; 93970; C9113; J0610; J1815; J1885

== ENCOUNTER 2018-01-11 18:20 | Inpatient (IN) | payer MEDICARE, MEDICAID ==
[~2018-01-11] VITALS: Ht 175.3 cm; Wt 119.5 kg
[2018-01-11 19:23] LABS: Basophils # (auto) 0 uL; Basophils % (auto) 0.5 % (0.0-2.0); Eosinophils # (auto) 0.6 uL; Eosinophils % (auto) 7.2 % (0.0-7.0); Hematocrit 34.8 % (41.0-53.0); Hemoglobin 11.3 g/dL (13.5-17.5); Lymphocytes # (auto) 2.6 uL; Lymphocytes % (auto) 34.2 % (10.0-50.0); Mean Corpuscular Hgb Conc. 32.4 g/dL (32.0-36.0); Mean Corpuscular Volume 83.4 fL (80.0-100.0); Monocytes # (auto) 0.9 uL; Monocytes % (auto) 11.3 % (0.0-12.0); Neutrophils # (auto) 3.6 uL; Neutrophils % (auto) 46.8 % (37.0-80.0); Platelet Count (auto) 267 10^3/uL (140-450); Red Blood Cells 4.18 10^6/uL (4.5-5.90); Red Cell Distribution Width 15.8 % (11.8-14.3); White Blood Cell 7.7 10^3/uL (4.4-10.8)
[2018-01-11 19:41] LABS: Alanine Aminotransferase 12 U/L (16-61); Albumin 2.7 g/dL (3.4-5.0); Alkaline Phosphatase 84 U/L (45-117); Anion Gap 12 (5-15); Aspartate Aminotransferase 8 U/L (15-37); BUN/Creatinine Ratio 19.1; Bilirubin, Total 0.4 mg/dL (0.2-1.0); Blood Urea Nitrogen 30 mg/dL (7-18); Calcium 8.1 mg/dL (8.5-10.1); Carbon Dioxide 22 mmol/L (21-32); Chloride 101 mmol/L (98-107); GFR African American 56 mL/min; GFR Non-African American 46 mL/min; Glucose 376 mg/dL (74-106); Potassium 4.6 mmol/L (3.5-5.1); Sodium 135 mmol/L (136-145); Total Protein 7.1 g/dL (6.4-8.2)
[2018-01-11 20:34] LABS: INR 0.92 (0.9-1.15); Partial Thromboplastin Time 25.5 sec (23.78-33.04); Prothrombin Time 9.9 sec (9.27-12.13)
[2018-01-11] MEDS ORDERED: InsuLIN REG 1unit/0.01ml Soln (100units/ml) IV ONE (21:30)
[2018-01-12] MEDS ORDERED: KETOROLAC TROMETH 30 MG/ML 1ML VIAL IV ONE (00:45)
[2018-01-12] MEDS ORDERED: NITROGLYCERIN 0.4 MG SL TAB SL PRN (02:45)
[2018-01-12] MEDS ORDERED: TEMAZEPAM 15 MG CAP PO PRN (02:45)
[2018-01-12] MEDS ORDERED: MORPHINE SULFATE 8mg/ml INJ SDV IV PRN (02:45)
[2018-01-12] MEDS ORDERED: FUROSEMIDE 40 MG/4 ML VIAL IV ONE (02:45)
[2018-01-12] MEDS ORDERED: ONDANSETRON HCL 4 MG/2 ML VIAL IV PRN (02:45)
[2018-01-12] MEDS ORDERED: DEXTROSE (50%) 50ML SYRG IV PRN (02:45)
[2018-01-12] MEDS ORDERED: ACETAMINOPHEN 325 MG TAB PO PRN (02:45)
[2018-01-12] MEDS ORDERED: HYDROcodone-ACET 5/325MG TAB PO PRN (02:45)
[2018-01-12] MEDS ORDERED: FUROSEMIDE 40 MG/4 ML VIAL ONE (02:53)
[2018-01-12 04:53] VITALS: BP 135/59
[2018-01-12] MEDS ORDERED: ENAL2.5T PO (05:42)
[2018-01-12] MEDS ORDERED: IPR002IS HHN (05:42)
[2018-01-12] MEDS ORDERED: TRAM50TA2 PO (05:42)
[2018-01-12] MEDS ORDERED: HYDR-531 PO (05:42)
[2018-01-12] MEDS ORDERED: INSREG3 IV (05:42)
[2018-01-12] MEDS ORDERED: ISOS5TAB PO (05:42)
[2018-01-12] MEDS ORDERED: IPRIH INH (05:42)
[2018-01-12] MEDS ORDERED: ZOLP10TA PO (05:42)
[2018-01-12] MEDS: ACCU-CHEK COMFORT CURVE STRIP VI SCH ×4 (06:09→23:50)
[2018-01-12] MEDS: InsuLIN REG 1unit/0.01ml Soln (100units/ml) SC SCH ×4 (06:10→23:50)
[2018-01-12 08:48] VITALS: BP 135/62
[2018-01-12] MEDS: ASPirin 81 mg TAB PO SCH (10:00)
[2018-01-12] MEDS: PANTOPRAZOLE 40 MG TAB PO SCH (10:15)
[2018-01-12] MEDS: ENOXAPARIN SOD 30 MG/0.3 ML SYRINGE SC SCH (10:15)
[2018-01-12] MEDS: CLOPIDOGREL BISULFATE 75 MG TAB PO SCH (10:16)
[2018-01-12] MEDS: FUROSEMIDE 20 MG TAB PO SCH (10:16)
[2018-01-12 13:00] VITALS: BP 135/57
[2018-01-12 17:05] VITALS: BP 153/77
[2018-01-12] MEDS: TAMSULOSIN HYDROCHLORIDE 0.4 MG CAP PO SCH (17:53)
[2018-01-12 22:10] VITALS: BP 132/60
[2018-01-12] MEDS: ATORVASTATIN 20 MG TAB PO SCH (22:26)
[2018-01-13] MEDS: ACCU-CHEK COMFORT CURVE STRIP VI SCH ×4 (05:57→23:48)
[2018-01-13] MEDS: InsuLIN REG 1unit/0.01ml Soln (100units/ml) SC SCH ×4 (06:07→23:57)
[2018-01-13 09:00] VITALS: BP 145/41
[2018-01-13] MEDS: ENOXAPARIN SOD 30 MG/0.3 ML SYRINGE SC SCH (10:00)
[2018-01-13] MEDS: CLOPIDOGREL BISULFATE 75 MG TAB PO SCH (10:00)
[2018-01-13] MEDS: PANTOPRAZOLE 40 MG TAB PO SCH (10:00)
[2018-01-13] MEDS: ASPirin 81 mg TAB PO SCH (10:00)
[2018-01-13] MEDS: FUROSEMIDE 20 MG TAB PO SCH (10:00)
[2018-01-13 14:07] LABS: Basophils # (auto) 0 uL; Eosinophils # (auto) 0.4 uL; Mean Corpuscular Volume 84.4 fL (80.0-100.0)
[2018-01-13 14:09] LABS: Basophils % (auto) 0.5 % (0.0-2.0); Eosinophils % (auto) 4.7 % (0.0-7.0); Hemoglobin 13.3 g/dL (13.5-17.5); Lymphocytes # (auto) 2.4 uL; Lymphocytes % (auto) 30.5 % (10.0-50.0); Mean Corpuscular Hemoglobin 27.3 pg (28.0-32.0); Mean Corpuscular Hgb Conc. 32.3 g/dL (32.0-36.0); Monocytes # (auto) 0.6 uL; Monocytes % (auto) 7.7 % (0.0-12.0); Neutrophils # (auto) 4.4 uL; Neutrophils % (auto) 56.6 % (37.0-80.0); Platelet Count (auto) 237 10^3/uL (140-450); Red Blood Cells 4.86 10^6/uL (4.5-5.90); Red Cell Distribution Width 15.5 % (11.8-14.3); White Blood Cell 7.8 10^3/uL (4.4-10.8)
[2018-01-13] MEDS: TAMSULOSIN HYDROCHLORIDE 0.4 MG CAP PO SCH (18:00)
[2018-01-13] MEDS: ATORVASTATIN 20 MG TAB PO SCH (21:58)
[2018-01-13 22:00] VITALS: BP 131/61
[2018-01-14 04:46] VITALS: BP 133/61
[2018-01-14] MEDS: ACCU-CHEK COMFORT CURVE STRIP VI SCH ×2 (06:00→12:28)
[2018-01-14] MEDS: InsuLIN REG 1unit/0.01ml Soln (100units/ml) SC SCH ×2 (06:08→12:29)
[2018-01-14 08:00] VITALS: BP 113/43
[2018-01-14 08:08] VITALS: BP 113/43
[2018-01-14] MEDS: ENOXAPARIN SOD 30 MG/0.3 ML SYRINGE SC SCH (10:23)
[2018-01-14] MEDS: FUROSEMIDE 20 MG TAB PO SCH (10:23)
[2018-01-14] MEDS: PANTOPRAZOLE 40 MG TAB PO SCH (10:23)
[2018-01-14] MEDS: CLOPIDOGREL BISULFATE 75 MG TAB PO SCH (10:24)
[2018-01-14] MEDS: ASPirin 81 mg TAB PO SCH (10:24)
[2018-01-14 12:08] VITALS: BP 123/60
[2018-01-14 16:26] VITALS: BP 132/54
[2018-01-14 17:10] VITALS: BP 132/54
== END 2018-01-14 17:10 | disposition home or self-care (01) | DRG 291 ==
LOC: EDBD 18:20 → EDUNIT# 18:20 → ER 18:20 → TELE 18:21 → TELE-CENTR 01-12 04:13
PROVIDERS: ADMIT Nurse Practitioner; ATTEND Family Medicine
DX: I13.0 Hypertensive heart and chronic kidney disease with heart failure and stage 1 through stage 4 chronic kidney disease, or unspecified chronic kidney disease (principal); I50.33 Acute on chronic diastolic (congestive) heart failure; E11.22 Type 2 diabetes mellitus with diabetic chronic kidney disease; E11.65 Type 2 diabetes mellitus with hyperglycemia; N18.3 Chronic kidney disease, stage 3 (moderate); E66.01 Morbid (severe) obesity due to excess calories; E78.00 Pure hypercholesterolemia, unspecified; E78.5 Hyperlipidemia, unspecified; G47.00 Insomnia, unspecified; I25.10 Atherosclerotic heart disease of native coronary artery without angina pectoris; R00.1 Bradycardia, unspecified; M77.31 Calcaneal spur, right foot; N40.0 Benign prostatic hyperplasia without lower urinary tract symptoms; R79.1 Abnormal coagulation profile; Z79.4 Long term (current) use of insulin; Z83.3 Family history of diabetes mellitus; Z95.1 Presence of aortocoronary bypass graft; Z98.61 Coronary angioplasty status; Z68.20 Body mass index [BMI] 20.0-20.9, adult; I25.2 Old myocardial infarction; Z79.82 Long term (current) use of aspirin; Z79.899 Other long term (current) drug therapy
CPT/HCPCS: 36415; 71045; 73630; 78582; 80053; 82962; 83036; 83880; 84484; 85025; 85379; 85610; 85730; 87081; 93005; 93970; 96374; 96375; J1815; J1885

== ENCOUNTER 2018-01-22 15:07 | Emergency (ER) | payer MEDICARE, MEDICAID ==
[~2018-01-22] VITALS: Ht 175.3 cm; Wt 104.3 kg
[~2018-01-22 15:07] MED LIST changes: -DOCU-94 PO; +ENAL2.5T PO; +HYDR-531 PO; +INSREG3 IV; +IPR002IS HHN; +IPRIH INH; +ISOS5TAB PO; +TRAM50TA2 PO; +ZOLP10TA PO
[2018-01-22 15:12] VITALS: BP 173/80
[2018-01-22] MEDS ORDERED: ASPirin 81 mg TAB PO ONE (15:30)
[2018-01-22 15:53] LABS: Basophils # (auto) 0 uL; Basophils % (auto) 0.6 % (0.0-2.0); Eosinophils # (auto) 0.4 uL; Eosinophils % (auto) 6.6 % (0.0-7.0); Hematocrit 35.4 % (41.0-53.0); Hemoglobin 11.8 g/dL (13.5-17.5); Lymphocytes # (auto) 2.2 uL; Lymphocytes % (auto) 33.2 % (10.0-50.0); Mean Corpuscular Hemoglobin 27.8 pg (28.0-32.0); Mean Corpuscular Hgb Conc. 33.2 g/dL (32.0-36.0); Mean Corpuscular Volume 83.5 fL (80.0-100.0); Monocytes # (auto) 0.6 uL; Monocytes % (auto) 8.8 % (0.0-12.0); Neutrophils # (auto) 3.3 uL; Neutrophils % (auto) 50.8 % (37.0-80.0); Platelet Count (auto) 230 10^3/uL (140-450); Red Blood Cells 4.24 10^6/uL (4.5-5.90); Red Cell Distribution Width 15.1 % (11.8-14.3); White Blood Cell 6.5 10^3/uL (4.4-10.8)
[2018-01-22 16:09] LABS: INR 0.95 (0.9-1.15); Partial Thromboplastin Time 25.3 sec (23.78-33.04); Prothrombin Time 10.2 sec (9.27-12.13)
[2018-01-22 16:17] LABS: Alanine Aminotransferase 12 U/L (16-61); Albumin 2.8 g/dL (3.4-5.0); Alkaline Phosphatase 90 U/L (45-117); Anion Gap 9 (5-15); Aspartate Aminotransferase 8 U/L (15-37); BUN/Creatinine Ratio 22.9; Bilirubin, Total 0.2 mg/dL (0.2-1.0); Blood Urea Nitrogen 27 mg/dL (7-18); Calcium 8.3 mg/dL (8.5-10.1); Carbon Dioxide 21 mmol/L (21-32); Chloride 107 mmol/L (98-107); GFR African American 78 mL/min; GFR Non-African American 64 mL/min; Glucose 195 mg/dL (74-106); Magnesium 2.3 mg/dL (1.6-2.6); Potassium 5.2 mmol/L (3.5-5.1); Sodium 137 mmol/L (136-145); Total Protein 7.2 g/dL (6.4-8.2)
[2018-01-22] MEDS ORDERED: ACETAMINOPHEN 500 MG TAB PO PRN (17:45)
[2018-01-22] MEDS ORDERED: LORazepam 0.5 MG TAB PO PRN (17:45)
[2018-01-22] MEDS ORDERED: NALBUPHINE HCL 10 MG/1ml INJECTION IV PRN (17:45)
[2018-01-22] MEDS ORDERED: TEMAZEPAM 15 MG CAP PO PRN (17:45)
[2018-01-22] MEDS ORDERED: DEXTROSE (50%) 50ML SYRG IV PRN (17:45)
[2018-01-22] MEDS ORDERED: ALBUTEROL SULF 2.5 MG/0.5ML(0.5%) NEB SOLN NEB PRN (17:45)
[2018-01-22] MEDS ORDERED: HYDROcodone-ACET 10/325MG TAB PO PRN (17:45)
[2018-01-22] MEDS ORDERED: MORPHINE SULF(PF) 0.5MG/ML 10ML VIAL IV PRN (17:45)
[2018-01-22] MEDS ORDERED: NITROGLYCERIN 0.4 MG SL TAB SL PRN (17:45)
[2018-01-22] MEDS ORDERED: PROMETHAZINE HCL 25 MG/ML 1ML IV PRN (17:45)
[2018-01-22] MEDS ORDERED: ALBUTEROL SULF 2.5 MG/0.5ML(0.5%) NEB SOLN NEB SCH (18:00)
[2018-01-22] MEDS ORDERED: IPRATROPIUM BROM 0.5 MG/2.5ML INH SOL NEB SCH (18:00)
[2018-01-22] MEDS ORDERED: PATIENTS OWN MEDICATION (Zolpidem Tartrate (Ambien) 1 TAB) PO SCH (18:00)
[2018-01-22] MEDS ORDERED: ATORVASTATIN 20 MG TAB PO SCH (18:00)
[2018-01-22] MEDS ORDERED: TAMSULOSIN HYDROCHLORIDE 0.4 MG CAP PO SCH (18:11)
[2018-01-22] MEDS ORDERED: PANTOPRAZOLE 40 MG TAB PO SCH (18:12)
[2018-01-22] MEDS ORDERED: NITROGLYCERIN 0.2MG/HR TOPICAL PATCH TD SCH (18:12)
[2018-01-22] MEDS ORDERED: InsuLIN REG 1unit/0.01ml Soln (100units/ml) SC SCH (22:00)
[2018-01-22] MEDS ORDERED: SODIUM CHLOR 0.9% PF (SALINE LOCK) 10ML VIAL/SYR IV SCH (22:00)
[2018-01-22] MEDS ORDERED: ACCU-CHEK COMFORT CURVE STRIP VI SCH (22:00)
[2018-01-22] MEDS ORDERED: METOPROLOL TARTRATE 25 MG TAB PO SCH (22:00)
[2018-01-23] MEDS ORDERED: ASPirin 81 mg TAB PO SCH (10:00)
[2018-01-23] MEDS ORDERED: GABAPENTIN 300 MG CAP PO SCH (10:00)
[2018-01-23] MEDS ORDERED: ENALAPRIL MALEATE 2.5 MG TAB PO SCH (10:00)
[2018-01-23] MEDS ORDERED: PANTOPRAZOLE 40 MG TAB PO SCH (10:00)
[2018-01-23] MEDS ORDERED: CLOPIDOGREL BISULFATE 75 MG TAB PO SCH (10:00)
== END 2018-01-22 19:21 | disposition left against medical advice (07) ==
LOC: EDBD 15:07 → ER 15:07
DX: I24.9 Acute ischemic heart disease, unspecified (principal); J90 Pleural effusion, not elsewhere classified; I50.9 Heart failure, unspecified; N18.9 Chronic kidney disease, unspecified; J44.9 Chronic obstructive pulmonary disease, unspecified; E11.22 Type 2 diabetes mellitus with diabetic chronic kidney disease; E78.5 Hyperlipidemia, unspecified; I13.0 Hypertensive heart and chronic kidney disease with heart failure and stage 1 through stage 4 chronic kidney disease, or unspecified chronic kidney disease; I25.2 Old myocardial infarction; I25.810 Atherosclerosis of coronary artery bypass graft(s) without angina pectoris; Z98.61 Coronary angioplasty status; Z79.899 Other long term (current) drug therapy; E66.9 Obesity, unspecified; Z68.34 Body mass index [BMI] 34.0-34.9, adult
CPT/HCPCS: 36415; 71045; 80053; 83036; 83735; 83880; 84443; 84484; 85025; 85379; 85610; 85730; 86141; 93005; 94761

== ENCOUNTER 2018-01-24 14:48 | Inpatient (IN) | payer MEDICARE, MEDICAID ==
[~2018-01-24] VITALS: Ht 172.7 cm; Wt 121.0 kg
[2018-01-24 15:36] LABS: Basophils # (auto) 0 uL; Basophils % (auto) 0.3 % (0.0-2.0); Eosinophils # (auto) 0.3 uL; Eosinophils % (auto) 3.5 % (0.0-7.0); Hematocrit 36.1 % (41.0-53.0); Hemoglobin 11.8 g/dL (13.5-17.5); Lymphocytes # (auto) 1.8 uL; Lymphocytes % (auto) 21.6 % (10.0-50.0); Mean Corpuscular Hemoglobin 27.1 pg (28.0-32.0); Mean Corpuscular Hgb Conc. 32.6 g/dL (32.0-36.0); Monocytes # (auto) 0.6 uL; Monocytes % (auto) 6.6 % (0.0-12.0); Neutrophils # (auto) 5.8 uL; Platelet Count (auto) 252 10^3/uL (140-450); Red Blood Cells 4.34 10^6/uL (4.5-5.90); Red Cell Distribution Width 15.2 % (11.8-14.3); White Blood Cell 8.5 10^3/uL (4.4-10.8)
[2018-01-24 15:55] LABS: Alanine Aminotransferase 15 U/L (16-61); Albumin 2.9 g/dL (3.4-5.0); Alkaline Phosphatase 87 U/L (45-117); Anion Gap 9 (5-15); Aspartate Aminotransferase 10 U/L (15-37); BUN/Creatinine Ratio 19.2; Bilirubin, Total 0.3 mg/dL (0.2-1.0); Blood Urea Nitrogen 30 mg/dL (7-18); Calcium 8.1 mg/dL (8.5-10.1); Carbon Dioxide 22 mmol/L (21-32); Chloride 105 mmol/L (98-107); GFR African American 56 mL/min; GFR Non-African American 47 mL/min; Glucose 246 mg/dL (74-106); Sodium 136 mmol/L (136-145); Total Protein 7.3 g/dL (6.4-8.2)
[2018-01-24] MEDS ORDERED: IOHEXOL 350 MG/ML 100ML IJ ONE (16:23)
[2018-01-24] MEDS ORDERED: ALBUTEROL SULF 2.5 MG/0.5ML(0.5%) NEB SOLN NEB STA (16:55)
[2018-01-24] MEDS ORDERED: DEXTROSE (50%) 50ML SYRG IV ONE (17:00)
[2018-01-24] MEDS ORDERED: SODIUM POLYSTYRENE SULF 15GM/60ML SUSP PO ONE (17:00)
[2018-01-24] MEDS ORDERED: InsuLIN REG 1unit/0.01ml Soln (100units/ml) IV ONE (17:00)
[2018-01-24] MEDS ORDERED: CALCIUM GLUC 4.65meq/50ml D5AE 50 ML IV ONE (17:00)
[2018-01-24] MEDS ORDERED: ZOLPIDEM TARTRATE 5 MG TAB PO PRN (18:00)
[2018-01-24] MEDS ORDERED: ALUM & MAG HYDROX-SIMETH LIQ(MAALOX) 30 ML PO ONE (18:00)
[2018-01-24] MEDS ORDERED: SODIUM BICARBONATE 8.4 % INJ 50ML VIAL IV ONE (18:00)
[2018-01-24] MEDS ORDERED: ACETAMINOPHEN 325 MG TAB PO PRN (18:00)
[2018-01-24] MEDS ORDERED: NITROGLYCERIN 0.4 MG SL TAB SL PRN (18:00)
[2018-01-24] MEDS ORDERED: LORazepam 0.5 MG TAB PO PRN (18:00)
[2018-01-24] MEDS ORDERED: ONDANSETRON HCL 4 MG/2 ML VIAL IV PRN (18:00)
[2018-01-24] MEDS ORDERED: DEXTROSE (50%) 50ML SYRG IV PRN (18:15)
[2018-01-24] MEDS ORDERED: NALBUPHINE HCL 10 MG/1ml INJECTION IV PRN (18:15)
[2018-01-24] MEDS ORDERED: traMADol HCL 50 MG TAB PO PRN (18:15)
[2018-01-24 19:44] LABS: INR 0.99 (0.9-1.15); Prothrombin Time 10.6 sec (9.27-12.13)
[2018-01-24 19:52] LABS: Anion Gap 11 (5-15); BUN/Creatinine Ratio 19.3; Blood Urea Nitrogen 33 mg/dL (7-18); Calcium 8.4 mg/dL (8.5-10.1); Carbon Dioxide 22 mmol/L (21-32); Chloride 104 mmol/L (98-107); GFR African American 51 mL/min; GFR Non-African American 42 mL/min; Glucose 288 mg/dL (74-106); Potassium 4.3 mmol/L (3.5-5.1); Sodium 137 mmol/L (136-145)
[2018-01-24 21:24] VITALS: BP 118/69
[2018-01-24] MEDS: SODIUM CHLOR 0.9% PF (SALINE LOCK) 10ML VIAL/SYR IV SCH (21:57)
[2018-01-24] MEDS: ATORVASTATIN 20 MG TAB PO SCH (21:57)
[2018-01-24] MEDS: GABAPENTIN 300 MG CAP PO SCH (21:57)
[2018-01-24] MEDS: ACCU-CHEK COMFORT CURVE STRIP VI SCH (22:01)
[2018-01-24] MEDS: InsuLIN REG 1unit/0.01ml Soln (100units/ml) SC SCH (22:16)
[2018-01-24] MEDS: INSULIN LANTUS (GLARGINE) 1 /0.01ml (100units/ml) SC SCH (22:16)
[2018-01-25] MEDS: IPRATROPIUM BROM 0.5 MG/2.5ML INH SOL NEB SCH ×4 (00:16→18:51)
[2018-01-25] MEDS: ALBUTEROL SULF 2.5 MG/0.5ML(0.5%) NEB SOLN NEB SCH ×4 (00:16→18:51)
[2018-01-25 06:03] LABS: Basophils # (auto) 0 uL; Basophils % (auto) 0.6 % (0.0-2.0); Eosinophils # (auto) 0.2 uL; Eosinophils % (auto) 2.8 % (0.0-7.0); Hematocrit 31.5 % (41.0-53.0); Hemoglobin 10.7 g/dL (13.5-17.5); Lymphocytes # (auto) 1.8 uL; Lymphocytes % (auto) 24.4 % (10.0-50.0); Mean Corpuscular Hemoglobin 27.4 pg (28.0-32.0); Mean Corpuscular Hgb Conc. 33.8 g/dL (32.0-36.0); Monocytes # (auto) 0.6 uL; Neutrophils # (auto) 4.6 uL; Neutrophils % (auto) 63.2 % (37.0-80.0); Platelet Count (auto) 234 10^3/uL (140-450); Red Blood Cells 3.89 10^6/uL (4.5-5.90); White Blood Cell 7.2 10^3/uL (4.4-10.8)
[2018-01-25] MEDS: ISOSORBIDE DINITRATE 10 MG TAB PO SCH ×3 (06:06→18:06)
[2018-01-25] MEDS: GABAPENTIN 300 MG CAP PO SCH ×3 (06:07→22:08)
[2018-01-25] MEDS: SODIUM CHLOR 0.9% PF (SALINE LOCK) 10ML VIAL/SYR IV SCH ×3 (06:25→22:08)
[2018-01-25 06:28] LABS: Albumin 2.7 g/dL (3.4-5.0); BUN/Creatinine Ratio 21.4; Bilirubin, Total 0.3 mg/dL (0.2-1.0); Calcium 8.2 mg/dL (8.5-10.1); Magnesium 2.1 mg/dL (1.6-2.6); Potassium 4.5 mmol/L (3.5-5.1); Total Protein 6.6 g/dL (6.4-8.2)
[2018-01-25] MEDS: InsuLIN REG 1unit/0.01ml Soln (100units/ml) SC SCH ×4 (06:31→22:09)
[2018-01-25] MEDS: ACCU-CHEK COMFORT CURVE STRIP VI SCH ×4 (06:33→22:09)
[2018-01-25] MEDS: Boost Glucose Control 8 Ounces PO SCH ×3 (08:45→18:05)
[2018-01-25 11:08] VITALS: BP 119/38
[2018-01-25] MEDS: PANTOPRAZOLE 40 MG TAB PO SCH (11:17)
[2018-01-25] MEDS: DOCUSATE SOD 100 MG CAP PO SCH (11:18)
[2018-01-25] MEDS: CLOPIDOGREL BISULFATE 75 MG TAB PO SCH (11:18)
[2018-01-25] MEDS: ASPirin 81 mg TAB PO SCH (11:18)
[2018-01-25] MEDS ORDERED: traMADol HCL 50 MG TAB PO PRN (14:30)
[2018-01-25] MEDS: FINASTERIDE 5 MG TAB PO SCH (15:03)
[2018-01-25] MEDS ORDERED: TAMSULOSIN HYDROCHLORIDE 0.4 MG CAP PO SCH ×2 (18:00)
[2018-01-25] MEDS ORDERED: PNEUMOCOCCAL VACC POLYS 25 MCG/0.5 ML VIAL IM ONE (18:30)
[2018-01-25 18:34] VITALS: BP 159/65
[2018-01-25 22:00] VITALS: BP 136/63
[2018-01-25] MEDS: ATORVASTATIN 20 MG TAB PO SCH (22:08)
[2018-01-25] MEDS: INSULIN LANTUS (GLARGINE) 1 /0.01ml (100units/ml) SC SCH (22:09)
[2018-01-25 22:13] LABS: Urine Bacteria NONE SEEN /hpf (None Seen); Urine Blood Negative /uL (Negative); Urine Specific Gravity 1.016 (1.001-1.035); Urine WBC <1 /hpf (0 - 3)
[2018-01-26] MEDS: ALBUTEROL SULF 2.5 MG/0.5ML(0.5%) NEB SOLN NEB SCH ×4 (00:50→18:45)
[2018-01-26] MEDS: IPRATROPIUM BROM 0.5 MG/2.5ML INH SOL NEB SCH ×4 (00:50→18:45)
[2018-01-26 05:57] LABS: Basophils # (auto) 0 uL; Basophils % (auto) 0.4 % (0.0-2.0); Eosinophils # (auto) 0.5 uL; Hematocrit 34.9 % (41.0-53.0); Hemoglobin 11.7 g/dL (13.5-17.5); Lymphocytes # (auto) 1.9 uL; Lymphocytes % (auto) 24.7 % (10.0-50.0); Mean Corpuscular Hemoglobin 27.6 pg (28.0-32.0); Mean Corpuscular Hgb Conc. 33.7 g/dL (32.0-36.0); Mean Corpuscular Volume 81.9 fL (80.0-100.0); Monocytes # (auto) 0.7 uL; Monocytes % (auto) 9.1 % (0.0-12.0); Neutrophils # (auto) 4.6 uL; Neutrophils % (auto) 59.8 % (37.0-80.0); Platelet Count (auto) 240 10^3/uL (140-450); Red Blood Cells 4.25 10^6/uL (4.5-5.90); Red Cell Distribution Width 14.8 % (11.8-14.3); White Blood Cell 7.6 10^3/uL (4.4-10.8)
[2018-01-26 06:00] VITALS: BP 133/76
[2018-01-26] MEDS: SODIUM CHLOR 0.9% PF (SALINE LOCK) 10ML VIAL/SYR IV SCH ×3 (06:10→21:43)
[2018-01-26] MEDS: ISOSORBIDE DINITRATE 10 MG TAB PO SCH ×3 (06:11→18:40)
[2018-01-26] MEDS: GABAPENTIN 300 MG CAP PO SCH ×3 (06:11→21:44)
[2018-01-26 06:15] LABS: Potassium 3.9 mmol/L (3.5-5.1)
[2018-01-26] MEDS: InsuLIN REG 1unit/0.01ml Soln (100units/ml) SC SCH ×4 (06:21→21:44)
[2018-01-26] MEDS: ACCU-CHEK COMFORT CURVE STRIP VI SCH ×4 (06:22→21:44)
[2018-01-26 06:26] LABS: Albumin 2.8 g/dL (3.4-5.0); BUN/Creatinine Ratio 26.2; Calcium 8.2 mg/dL (8.5-10.1)
[2018-01-26 06:31] LABS: Bilirubin, Total 0.4 mg/dL (0.2-1.0)
[2018-01-26] MEDS: Boost Glucose Control 8 Ounces PO SCH ×3 (08:00→18:05)
[2018-01-26 09:00] VITALS: BP 118/52
[2018-01-26] MEDS: CLOPIDOGREL BISULFATE 75 MG TAB PO SCH (09:50)
[2018-01-26] MEDS: PANTOPRAZOLE 40 MG TAB PO SCH (09:50)
[2018-01-26] MEDS: ASPirin 81 mg TAB PO SCH (09:50)
[2018-01-26] MEDS: DOCUSATE SOD 100 MG CAP PO SCH (09:50)
[2018-01-26] MEDS: FINASTERIDE 5 MG TAB PO SCH (09:51)
[2018-01-26] MEDS ORDERED: METOPROLOL TARTRATE 50 MG TAB PO ONE (12:30)
[2018-01-26 13:00] VITALS: BP 123/60
[2018-01-26 17:00] VITALS: BP 129/68
[2018-01-26 21:39] VITALS: BP 117/53
[2018-01-26] MEDS: METOPROLOL TARTRATE 50 MG TAB PO SCH (21:43)
[2018-01-26] MEDS: ATORVASTATIN 20 MG TAB PO SCH (21:43)
[2018-01-26] MEDS: INSULIN LANTUS (GLARGINE) 1 /0.01ml (100units/ml) SC SCH (21:44)
[2018-01-26 21:52] LABS: INR 0.98 (0.9-1.15); Partial Thromboplastin Time 25.2 sec (23.78-33.04); Prothrombin Time 10.5 sec (9.27-12.13)
[2018-01-27 04:41] VITALS: BP 118/60
[2018-01-27] MEDS: ISOSORBIDE DINITRATE 10 MG TAB PO SCH ×3 (05:46→18:00)
[2018-01-27] MEDS: SODIUM CHLOR 0.9% PF (SALINE LOCK) 10ML VIAL/SYR IV SCH ×3 (05:46→21:25)
[2018-01-27] MEDS: GABAPENTIN 300 MG CAP PO SCH ×3 (05:46→21:26)
[2018-01-27] MEDS: InsuLIN REG 1unit/0.01ml Soln (100units/ml) SC SCH ×4 (05:46→21:56)
[2018-01-27] MEDS: ACCU-CHEK COMFORT CURVE STRIP VI SCH ×4 (05:51→21:26)
[2018-01-27] MEDS ORDERED: LIDOCAINE 2% (LOCAL ANESTH.) PF 5ml SDV ONE (07:21)
[2018-01-27] MEDS ORDERED: IODIXANOL 320MG/ML 100ML BTL IV ONE ×2 (07:21→07:59)
[2018-01-27] MEDS: IPRATROPIUM BROM 0.5 MG/2.5ML INH SOL NEB SCH ×4 (07:25→19:08)
[2018-01-27] MEDS: ALBUTEROL SULF 2.5 MG/0.5ML(0.5%) NEB SOLN NEB SCH ×4 (07:25→19:08)
[2018-01-27 07:27] VITALS: BP 160/81
[2018-01-27] MEDS: Boost Glucose Control 8 Ounces PO SCH ×3 (07:57→18:22)
[2018-01-27] MEDS ORDERED: fentaNYL CITRATE 100 MCG/2 ML VL ONE ×2 (07:59→08:52)
[2018-01-27] MEDS ORDERED: ANGIOMAX 250 MG VIAL IV ONE ×3 (07:59→08:59)
[2018-01-27] MEDS ORDERED: MIDAZOLAM HCL 1MG/1ML-2 ML VIAL ONE ×2 (07:59→08:52)
[2018-01-27] MEDS ORDERED: SODIUM CHL 0.9% 50 ML ONE ×3 (08:00→09:00)
[2018-01-27 08:29] VITALS: BP 160/81
[2018-01-27] MEDS ORDERED: EPTIFIBATIDE INJ (2MG/ML) 10ML VIAL IV ONE ×2 (08:42→09:07)
[2018-01-27] MEDS ORDERED: NITROGLYCERIN 5MG/ML 10ML VIAL IV ONE (08:42)
[2018-01-27] MEDS ORDERED: ONDANSETRON HCL 4 MG/2 ML VIAL ONE (08:53)
[2018-01-27] MEDS ORDERED: EPTIFIBATIDE DRIP(0.75MG/ML) 0 ML IV ONE (09:07)
[2018-01-27] MEDS: DOCUSATE SOD 100 MG CAP PO SCH (10:00)
[2018-01-27] MEDS: METOPROLOL TARTRATE 50 MG TAB PO SCH ×2 (10:00→21:27)
[2018-01-27] MEDS: CLOPIDOGREL BISULFATE 75 MG TAB PO SCH (10:00)
[2018-01-27] MEDS: ASPirin 81 mg TAB PO SCH (10:00)
[2018-01-27] MEDS: PANTOPRAZOLE 40 MG TAB PO SCH (10:00)
[2018-01-27] MEDS ORDERED: PROCHLORPERAZINE EDISYLATE 5 MG/ML 2ML VIAL ONE (10:15)
[2018-01-27] MEDS ORDERED: ATROPINE SULF 1 MG/10ml SYR IV ONE ×2 (13:03)
[2018-01-27] MEDS ORDERED: SODIUM BICARBONATE 8.4% INJ 50ML SYRINGE IV ONE (13:03)
[2018-01-27] MEDS ORDERED: DOPamine 1600mCg/ml 400MG/250ml NSorD5 KIT/BAG IV ONE (13:03)
[2018-01-27] MEDS ORDERED: EPINEPHrine HCL 1 MG/10 ML SYRG IV ONE (13:03)
[2018-01-27 15:21] VITALS: BP 108/66
[2018-01-27 15:52] VITALS: BP 147/86
[2018-01-27] MEDS: FINASTERIDE 5 MG TAB PO SCH (16:32)
[2018-01-27 20:00] VITALS: BP 93/44
[2018-01-27] MEDS: ATORVASTATIN 20 MG TAB PO SCH (21:25)
[2018-01-27] MEDS: INSULIN LANTUS (GLARGINE) 1 /0.01ml (100units/ml) SC SCH (22:12)
[2018-01-28] VITALS (8 sets, daily range): BP systolic 94–113; BP diastolic 45–65
[2018-01-28] MEDS: ALBUTEROL SULF 2.5 MG/0.5ML(0.5%) NEB SOLN NEB SCH ×4 (00:52→19:14)
[2018-01-28] MEDS: IPRATROPIUM BROM 0.5 MG/2.5ML INH SOL NEB SCH ×4 (00:52→19:14)
[2018-01-28] MEDS: SODIUM CHLOR 0.9% PF (SALINE LOCK) 10ML VIAL/SYR IV SCH ×3 (06:44→22:00)
[2018-01-28] MEDS: GABAPENTIN 300 MG CAP PO SCH ×3 (06:45→21:25)
[2018-01-28] MEDS: ISOSORBIDE DINITRATE 10 MG TAB PO SCH ×3 (06:45→18:05)
[2018-01-28] MEDS: ACCU-CHEK COMFORT CURVE STRIP VI SCH ×4 (06:45→21:46)
[2018-01-28] MEDS: InsuLIN REG 1unit/0.01ml Soln (100units/ml) SC SCH ×4 (06:46→21:45)
[2018-01-28] MEDS: METOPROLOL TARTRATE 50 MG TAB PO SCH ×2 (10:00→21:25)
[2018-01-28 10:14] LABS: Basophils # (auto) 0 uL; Eosinophils # (auto) 0.1 uL; Hemoglobin 10.8 g/dL (13.5-17.5); Lymphocytes # (auto) 1.9 uL
[2018-01-28 10:20] LABS: Basophils % (auto) 0.3 % (0.0-2.0); Eosinophils % (auto) 0.8 % (0.0-7.0); Hematocrit 32.8 % (41.0-53.0); Lymphocytes % (auto) 18.9 % (10.0-50.0); Mean Corpuscular Hemoglobin 27.1 pg (28.0-32.0); Mean Corpuscular Hgb Conc. 32.9 g/dL (32.0-36.0); Mean Corpuscular Volume 82.5 fL (80.0-100.0); Monocytes # (auto) 0.9 uL; Monocytes % (auto) 8.9 % (0.0-12.0); Neutrophils % (auto) 71.1 % (37.0-80.0); Platelet Count (auto) 221 10^3/uL (140-450); Red Blood Cells 3.98 10^6/uL (4.5-5.90); Red Cell Distribution Width 15.1 % (11.8-14.3); White Blood Cell 9.9 10^3/uL (4.4-10.8)
[2018-01-28] MEDS: Boost Glucose Control 8 Ounces PO SCH ×3 (10:28→18:00)
[2018-01-28] MEDS: ASPirin 81 mg TAB PO SCH (10:29)
[2018-01-28] MEDS: DOCUSATE SOD 100 MG CAP PO SCH (10:29)
[2018-01-28] MEDS: FINASTERIDE 5 MG TAB PO SCH (10:29)
[2018-01-28] MEDS: CLOPIDOGREL BISULFATE 75 MG TAB PO SCH (10:29)
[2018-01-28] MEDS: PANTOPRAZOLE 40 MG TAB PO SCH (10:29)
[2018-01-28] MEDS: POTASSIUM CHL 20 Meq TABLET PO SCH (10:29)
[2018-01-28 10:47] LABS: BUN/Creatinine Ratio 15.6; Calcium 8.1 mg/dL (8.5-10.1); Potassium 4.4 mmol/L (3.5-5.1)
[2018-01-28] MEDS: FUROSEMIDE 40 MG/4 ML VIAL IV SCH (12:09)
[2018-01-28] MEDS: ATORVASTATIN 20 MG TAB PO SCH (21:24)
[2018-01-28] MEDS: NITROGLYCERIN 0.4 MG SL TAB SL PRN (21:24)
[2018-01-28] MEDS: HYDROcodone-ACET 10/325MG TAB PO PRN (21:27)
[2018-01-28] MEDS: INSULIN LANTUS (GLARGINE) 1 /0.01ml (100units/ml) SC SCH (21:45)
[2018-01-29] VITALS (7 sets, daily range): BP systolic 99–122; BP diastolic 46–59
[2018-01-29] MEDS: GABAPENTIN 300 MG CAP PO SCH ×3 (06:00→21:33)
[2018-01-29] MEDS: ISOSORBIDE DINITRATE 10 MG TAB PO SCH ×3 (06:00→18:40)
[2018-01-29] MEDS: SODIUM CHLOR 0.9% PF (SALINE LOCK) 10ML VIAL/SYR IV SCH ×3 (06:00→21:35)
[2018-01-29] MEDS: ALBUTEROL SULF 2.5 MG/0.5ML(0.5%) NEB SOLN NEB SCH ×4 (06:00→18:11)
[2018-01-29] MEDS: IPRATROPIUM BROM 0.5 MG/2.5ML INH SOL NEB SCH ×4 (06:00→18:10)
[2018-01-29] MEDS: InsuLIN REG 1unit/0.01ml Soln (100units/ml) SC SCH ×4 (06:56→22:00)
[2018-01-29] MEDS: ACCU-CHEK COMFORT CURVE STRIP VI SCH ×4 (07:03→22:01)
[2018-01-29 07:53] LABS: Basophils # (auto) 0 uL; Basophils % (auto) 0.4 % (0.0-2.0); Eosinophils # (auto) 0.4 uL; Eosinophils % (auto) 4.4 % (0.0-7.0); Hematocrit 32.3 % (41.0-53.0); Hemoglobin 10.8 g/dL (13.5-17.5); Lymphocytes # (auto) 3.1 uL; Lymphocytes % (auto) 31.7 % (10.0-50.0); Mean Corpuscular Hemoglobin 27.7 pg (28.0-32.0); Mean Corpuscular Hgb Conc. 33.4 g/dL (32.0-36.0); Mean Corpuscular Volume 82.9 fL (80.0-100.0); Monocytes # (auto) 1.1 uL; Monocytes % (auto) 10.9 % (0.0-12.0); Neutrophils # (auto) 5.1 uL; Neutrophils % (auto) 52.6 % (37.0-80.0); Platelet Count (auto) 213 10^3/uL (140-450); White Blood Cell 9.6 10^3/uL (4.4-10.8)
[2018-01-29 08:11] LABS: Albumin 2.8 g/dL (3.4-5.0); BUN/Creatinine Ratio 17.2; Bilirubin, Total 0.7 mg/dL (0.2-1.0); Calcium 8.2 mg/dL (8.5-10.1); Potassium 4.7 mmol/L (3.5-5.1); Total Protein 7.1 g/dL (6.4-8.2)
[2018-01-29] MEDS: Boost Glucose Control 8 Ounces PO SCH ×3 (08:23→18:00)
[2018-01-29] MEDS: DOCUSATE SOD 100 MG CAP PO SCH (09:51)
[2018-01-29] MEDS: ASPirin 81 mg TAB PO SCH (09:51)
[2018-01-29] MEDS: FUROSEMIDE 40 MG/4 ML VIAL IV SCH (09:51)
[2018-01-29] MEDS: POTASSIUM CHL 20 Meq TABLET PO SCH (09:51)
[2018-01-29] MEDS: METOPROLOL TARTRATE 50 MG TAB PO SCH ×2 (09:52→21:33)
[2018-01-29] MEDS: CLOPIDOGREL BISULFATE 75 MG TAB PO SCH (09:52)
[2018-01-29] MEDS: FINASTERIDE 5 MG TAB PO SCH (09:52)
[2018-01-29] MEDS: PANTOPRAZOLE 40 MG TAB PO SCH (09:53)
[2018-01-29] MEDS ORDERED: SOD CHL 0.45% 1,000 ML IV SCH (14:31)
[2018-01-29] MEDS ORDERED: diphenhdrAMINE HCL 50 MG/1 ML VL IV ONE (14:45)
[2018-01-29] MEDS ORDERED: SODIUM BICARBONATE 50ML VIAL 150 ML in D5W 5% 1,000 ML IV SCH (14:45)
[2018-01-29] MEDS: SOD CHL 0.45% 1,000 ML IV SCH (17:39)
[2018-01-29] MEDS: ATORVASTATIN 20 MG TAB PO SCH (21:33)
[2018-01-29] MEDS: INSULIN LANTUS (GLARGINE) 1 /0.01ml (100units/ml) SC SCH (22:01)
[2018-01-30] VITALS (7 sets, daily range): BP systolic 98–139; BP diastolic 41–64
[2018-01-30] MEDS: SOD CHL 0.45% 1,000 ML IV SCH (00:30)
[2018-01-30] MEDS: ALBUTEROL SULF 2.5 MG/0.5ML(0.5%) NEB SOLN NEB SCH ×4 (04:15→18:56)
[2018-01-30] MEDS: IPRATROPIUM BROM 0.5 MG/2.5ML INH SOL NEB SCH ×4 (04:15→18:56)
[2018-01-30] MEDS: NITROGLYCERIN 0.4 MG SL TAB SL PRN (04:45)
[2018-01-30] MEDS: GABAPENTIN 300 MG CAP PO SCH ×3 (05:36→22:00)
[2018-01-30] MEDS: SODIUM CHLOR 0.9% PF (SALINE LOCK) 10ML VIAL/SYR IV SCH ×2 (05:36→22:00)
[2018-01-30] MEDS: ISOSORBIDE DINITRATE 10 MG TAB PO SCH ×3 (06:00→18:32)
[2018-01-30] MEDS: HYDROcodone-ACET 10/325MG TAB PO PRN (06:30)
[2018-01-30] MEDS: InsuLIN REG 1unit/0.01ml Soln (100units/ml) SC SCH ×4 (06:59→22:00)
[2018-01-30] MEDS: ACCU-CHEK COMFORT CURVE STRIP VI SCH ×4 (07:02→22:00)
[2018-01-30 07:56] LABS: Albumin 2.6 g/dL (3.4-5.0); BUN/Creatinine Ratio 20.1; Bilirubin, Total 0.7 mg/dL (0.2-1.0); Calcium 7.6 mg/dL (8.5-10.1); Total Protein 6.5 g/dL (6.4-8.2)
[2018-01-30] MEDS: METOPROLOL TARTRATE 50 MG TAB PO SCH ×2 (10:00→22:00)
[2018-01-30] MEDS: FINASTERIDE 5 MG TAB PO SCH (10:33)
[2018-01-30] MEDS: POTASSIUM CHL 20 Meq TABLET PO SCH (10:33)
[2018-01-30] MEDS: CLOPIDOGREL BISULFATE 75 MG TAB PO SCH (10:33)
[2018-01-30] MEDS: ASPirin 81 mg TAB PO SCH (10:34)
[2018-01-30] MEDS: DOCUSATE SOD 100 MG CAP PO SCH (10:34)
[2018-01-30] MEDS: PANTOPRAZOLE 40 MG TAB PO SCH (10:34)
[2018-01-30] MEDS ORDERED: SOD CHL 0.45% 1,000 ML IV SCH (14:00)
[2018-01-30] MEDS: Boost Glucose Control 8 Ounces PO SCH ×3 (14:56→18:27)
[2018-01-30] MEDS: ATORVASTATIN 20 MG TAB PO SCH (22:00)
[2018-01-30] MEDS: INSULIN LANTUS (GLARGINE) 1 /0.01ml (100units/ml) SC SCH (22:00)
[2018-01-31] MEDS: IPRATROPIUM BROM 0.5 MG/2.5ML INH SOL NEB SCH ×4 (00:10→19:13)
[2018-01-31] MEDS: ALBUTEROL SULF 2.5 MG/0.5ML(0.5%) NEB SOLN NEB SCH ×4 (00:10→19:13)
[2018-01-31 05:30] VITALS: BP 101/24
[2018-01-31] MEDS: ISOSORBIDE DINITRATE 10 MG TAB PO SCH ×3 (06:00→17:31)
[2018-01-31] MEDS: GABAPENTIN 300 MG CAP PO SCH ×3 (06:00→22:24)
[2018-01-31] MEDS: SODIUM CHLOR 0.9% PF (SALINE LOCK) 10ML VIAL/SYR IV SCH ×3 (06:00→22:26)
[2018-01-31] MEDS: ACCU-CHEK COMFORT CURVE STRIP VI SCH ×4 (07:00→22:25)
[2018-01-31] MEDS: InsuLIN REG 1unit/0.01ml Soln (100units/ml) SC SCH ×4 (07:00→22:25)
[2018-01-31 08:00] VITALS: BP 100/48
[2018-01-31 09:21] VITALS: BP 101/24
[2018-01-31] MEDS: METOPROLOL TARTRATE 50 MG TAB PO SCH ×2 (10:00→22:23)
[2018-01-31] MEDS: POTASSIUM CHL 20 Meq TABLET PO SCH (10:00)
[2018-01-31] MEDS: ASPirin 81 mg TAB PO SCH (10:13)
[2018-01-31] MEDS: DOCUSATE SOD 100 MG CAP PO SCH (10:13)
[2018-01-31] MEDS: PANTOPRAZOLE 40 MG TAB PO SCH (10:13)
[2018-01-31] MEDS: CLOPIDOGREL BISULFATE 75 MG TAB PO SCH (10:13)
[2018-01-31] MEDS: FINASTERIDE 5 MG TAB PO SCH (10:13)
[2018-01-31] MEDS: Boost Glucose Control 8 Ounces PO SCH ×3 (10:13→17:31)
[2018-01-31 10:35] LABS: Urine Bacteria NONE SEEN /hpf (None Seen); Urine Blood Negative /uL (Negative); Urine Specific Gravity 1.013 (1.001-1.035); Urine WBC 1 /hpf (0 - 3)
[2018-01-31 10:56] LABS: BUN/Creatinine Ratio 22.2; Calcium 7.5 mg/dL (8.5-10.1); Potassium 5.5 mmol/L (3.5-5.1)
[2018-01-31 12:00] VITALS: BP 121/50
[2018-01-31] MEDS ORDERED: SODIUM POLYSTYRENE SULF 15GM/60ML SUSP PO ONE (14:00)
[2018-01-31 15:00] VITALS: BP 107/62
[2018-01-31 15:27] LABS: Creatinine, Urine 94 mg/dL (30.0-125.0); Sodium Urine 20 mmol/L (40-220)
[2018-01-31 22:00] VITALS: BP 155/64
[2018-01-31] MEDS: ATORVASTATIN 20 MG TAB PO SCH (22:22)
[2018-01-31] MEDS: SODIUM POLYSTYRENE SULF 15GM/60ML SUSP PO SCH (22:24)
[2018-01-31] MEDS: INSULIN LANTUS (GLARGINE) 1 /0.01ml (100units/ml) SC SCH (22:25)
[2018-02-01 04:53] VITALS: BP 115/58
[2018-02-01] MEDS: ISOSORBIDE DINITRATE 10 MG TAB PO SCH ×3 (06:23→18:28)
[2018-02-01] MEDS: SODIUM CHLOR 0.9% PF (SALINE LOCK) 10ML VIAL/SYR IV SCH ×3 (06:23→21:41)
[2018-02-01] MEDS: InsuLIN REG 1unit/0.01ml Soln (100units/ml) SC SCH ×4 (06:24→21:51)
[2018-02-01] MEDS: ACCU-CHEK COMFORT CURVE STRIP VI SCH ×4 (06:24→21:43)
[2018-02-01] MEDS: GABAPENTIN 300 MG CAP PO SCH ×3 (06:24→21:40)
[2018-02-01] MEDS: IPRATROPIUM BROM 0.5 MG/2.5ML INH SOL NEB SCH ×3 (07:20→19:35)
[2018-02-01] MEDS: ALBUTEROL SULF 2.5 MG/0.5ML(0.5%) NEB SOLN NEB SCH ×3 (07:20→19:35)
[2018-02-01 07:42] LABS: BUN/Creatinine Ratio 23.8; Calcium 7.8 mg/dL (8.5-10.1); Potassium 4.1 mmol/L (3.5-5.1)
[2018-02-01] MEDS: Boost Glucose Control 8 Ounces PO SCH ×3 (08:09→18:28)
[2018-02-01 09:00] VITALS: BP 99/49
[2018-02-01] MEDS ORDERED: BUMETANIDE (0.25MG/ML) 4 ML VIAL IV ONE (10:00)
[2018-02-01] MEDS: METOPROLOL TARTRATE 50 MG TAB PO SCH ×2 (10:00→21:41)
[2018-02-01] MEDS ORDERED: ZOLPIDEM TARTRATE 5 MG TAB PO PRN (10:00)
[2018-02-01] MEDS ORDERED: NALBUPHINE HCL 10 MG/1ml INJECTION IV PRN (10:00)
[2018-02-01] MEDS ORDERED: LORazepam 0.5 MG TAB PO PRN (10:00)
[2018-02-01] MEDS: SODIUM POLYSTYRENE SULF 15GM/60ML SUSP PO SCH ×2 (10:00→21:43)
[2018-02-01] MEDS ORDERED: HYDROcodone-ACET 10/325MG TAB PO PRN (10:00)
[2018-02-01] MEDS: ASPirin 81 mg TAB PO SCH (11:08)
[2018-02-01] MEDS: CLOPIDOGREL BISULFATE 75 MG TAB PO SCH (11:08)
[2018-02-01] MEDS: PANTOPRAZOLE 40 MG TAB PO SCH (11:08)
[2018-02-01] MEDS: FINASTERIDE 5 MG TAB PO SCH (11:08)
[2018-02-01] MEDS: DOCUSATE SOD 100 MG CAP PO SCH (11:08)
[2018-02-01] MEDS: ALBUMIN 25% 100 ML IV SCH ×2 (11:10→16:00)
[2018-02-01 12:54] VITALS: BP 124/60
[2018-02-01 16:58] VITALS: BP 150/75
[2018-02-01] MEDS: ATORVASTATIN 20 MG TAB PO SCH (21:41)
[2018-02-01] MEDS: INSULIN LANTUS (GLARGINE) 1 /0.01ml (100units/ml) SC SCH (21:51)
[2018-02-01 22:00] VITALS: BP 141/56
[2018-02-02] MEDS: ALBUMIN 25% 100 ML IV SCH (01:54)
[2018-02-02 05:00] VITALS: BP 122/58
[2018-02-02] MEDS: SODIUM CHLOR 0.9% PF (SALINE LOCK) 10ML VIAL/SYR IV SCH ×2 (05:52→15:41)
[2018-02-02] MEDS: ISOSORBIDE DINITRATE 10 MG TAB PO SCH ×3 (05:53→18:06)
[2018-02-02] MEDS: ALBUTEROL SULF 2.5 MG/0.5ML(0.5%) NEB SOLN NEB SCH ×4 (06:18→18:40)
[2018-02-02] MEDS: IPRATROPIUM BROM 0.5 MG/2.5ML INH SOL NEB SCH ×4 (06:18→18:40)
[2018-02-02] MEDS: GABAPENTIN 300 MG CAP PO SCH ×2 (06:23→15:41)
[2018-02-02] MEDS: InsuLIN REG 1unit/0.01ml Soln (100units/ml) SC SCH ×3 (06:23→18:05)
[2018-02-02] MEDS: ACCU-CHEK COMFORT CURVE STRIP VI SCH ×3 (06:23→18:05)
[2018-02-02 06:40] LABS: Calcium 7.9 mg/dL (8.5-10.1); Potassium 3.7 mmol/L (3.5-5.1)
[2018-02-02 06:42] LABS: BUN/Creatinine Ratio 26.9
[2018-02-02] MEDS: Boost Glucose Control 8 Ounces PO SCH ×3 (08:14→18:05)
[2018-02-02 08:48] VITALS: BP 126/54
[2018-02-02] MEDS ORDERED: POTASSIUM CHL 20 Meq TABLET PO ONE (09:45)
[2018-02-02] MEDS ORDERED: ALBUMIN 25% 100 ML IV ONE (09:45)
[2018-02-02] MEDS ORDERED: BUMETANIDE (0.25MG/ML) 4 ML VIAL IV ONE (09:45)
[2018-02-02] MEDS ORDERED: METOPROLOL TARTRATE 50 MG TAB PO SCH (10:00)
[2018-02-02] MEDS: ASPirin 81 mg TAB PO SCH (10:23)
[2018-02-02] MEDS: DOCUSATE SOD 100 MG CAP PO SCH (10:25)
[2018-02-02] MEDS: CLOPIDOGREL BISULFATE 75 MG TAB PO SCH (10:28)
[2018-02-02] MEDS: FINASTERIDE 5 MG TAB PO SCH (10:28)
[2018-02-02] MEDS: PANTOPRAZOLE 40 MG TAB PO SCH (10:29)
[2018-02-02 16:41] VITALS: BP 138/58
[2018-02-02 17:29] VITALS: BP 138/52
[2018-02-02 18:47] VITALS: BP 136/61
== END 2018-02-02 20:00 | DRG 246 ==
LOC: EDBD 14:48 → ER 14:48 → TELE 14:49 → TELE-WESTW 01-25 16:55 → DOU IN ICU 01-27 15:16 → CENTRAL 01-28 13:15 → TELE-CENTR 01-28 15:50 → CENTRAL 02-02 12:38
PROVIDERS: ADMIT Internal Medicine; ATTEND Internal Medicine
PROC: 027037Z Dilation of Coronary Artery, One Artery with Four or More Drug-eluting Intraluminal Devices, Percutaneous Approach (ICD-10-PCS; 2018-01-24)
PROC: 4A023N7 Measurement of Cardiac Sampling and Pressure, Left Heart, Percutaneous Approach (ICD-10-PCS; 2018-01-24)
PROC: B2131ZZ Fluoroscopy of Multiple Coronary Artery Bypass Grafts using Low Osmolar Contrast (ICD-10-PCS; 2018-01-24)
PROC: B2111ZZ Fluoroscopy of Multiple Coronary Arteries using Low Osmolar Contrast (ICD-10-PCS; 2018-01-24)
PROC: B2181ZZ Fluoroscopy of Left Internal Mammary Bypass Graft using Low Osmolar Contrast (ICD-10-PCS; 2018-01-24)
PROC: B2151ZZ Fluoroscopy of Left Heart using Low Osmolar Contrast (ICD-10-PCS; 2018-01-24)
PROC: 02HV33Z Insertion of Infusion Device into Superior Vena Cava, Percutaneous Approach (ICD-10-PCS; principal; 2018-01-31)
DX: I13.0 Hypertensive heart and chronic kidney disease with heart failure and stage 1 through stage 4 chronic kidney disease, or unspecified chronic kidney disease (principal); I21.4 Non-ST elevation (NSTEMI) myocardial infarction; I50.43 Acute on chronic combined systolic (congestive) and diastolic (congestive) heart failure; E43 Unspecified severe protein-calorie malnutrition; N17.0 Acute kidney failure with tubular necrosis; Z68.41 Body mass index [BMI] 40.0-44.9, adult; I25.10 Atherosclerotic heart disease of native coronary artery without angina pectoris; J44.9 Chronic obstructive pulmonary disease, unspecified; E78.5 Hyperlipidemia, unspecified; N18.3 Chronic kidney disease, stage 3 (moderate); E87.5 Hyperkalemia; E83.51 Hypocalcemia; E66.01 Morbid (severe) obesity due to excess calories; E11.21 Type 2 diabetes mellitus with diabetic nephropathy; D63.8 Anemia in other chronic diseases classified elsewhere; I25.2 Old myocardial infarction; I77.810 Thoracic aortic ectasia; N40.0 Benign prostatic hyperplasia without lower urinary tract symptoms; Z95.1 Presence of aortocoronary bypass graft; E11.22 Type 2 diabetes mellitus with diabetic chronic kidney disease; E11.65 Type 2 diabetes mellitus with hyperglycemia; N14.1 Nephropathy induced by other drugs, medicaments and biological substances; I95.9 Hypotension, unspecified; T50.8X5A Adverse effect of diagnostic agents, initial encounter; Z53.9 Procedure and treatment not carried out, unspecified reason; Z79.4 Long term (current) use of insulin; Z82.49 Family history of ischemic heart disease and other diseases of the circulatory system; Z83.3 Family history of diabetes mellitus; Z86.73 Personal history of transient ischemic attack (TIA), and cerebral infarction without residual deficits; Z87.891 Personal history of nicotine dependence; Z23 Encounter for immunization; Y92.89 Other specified places as the place of occurrence of the external cause; Z79.899 Other long term (current) drug therapy
CPT/HCPCS: 36415; 70450; 71045; 71046; 71275; 76604; 76775; 80048; 80053; 80061; 81001; 82565; 82570; 82962; 83036; 83615; 83735; 83880; 84132; 84300; 84443; 84484; 85025; 85379; 85610; 85730; 86141; 86850; 86900; 86901; 87081; 87086; 93005; 93970; 94640; 94761; 96372; 96374; 96375; 99152; C1874; J0610; J1815; J2250; J2405; J3490; P9047; Q9967